=== PATIENT | male | born 1955 | race Caucasian/White ===

== ENCOUNTER 2023-04-03 15:22 | Outpatient (REF) | payer MEDICARE, SELFPAY ==
--- NOTE | ~2023-04-03 | CT_ITS ---
EXAMINATION: CT CHEST SCREENING CLINICAL INFORMATION: Current smoker. 51 pack year history. COMPARISON: None available. TECHNIQUE: Multidetector volumetric CT imaging of the chest is performed without contrast using low dose technique. Additional 2D coronal and sagittal reformatted images and axial 3D maximum intensity projection (MIP) images are generated on the CT workstation. This CT examination was performed using dose optimization techniques as appropriate, variously including the following: *Automated exposure control *Adjustment of mA and/or kV according to patient size (this includes techniques or standardized protocols for targeted exams where dose is matched to indication/reason for exam; i.e. extremities or head) *Use of iterative reconstruction technique DLP: 67 mGy-cm FINDINGS: LUNGS: Emphysema. The lungs are clear with no evidence of inflammation or nodules. MEDIASTINUM: The mediastinum is normal. CORONARY ARTERY CALCIFICATION: Mild PLEURA: There is no pleural effusion. No pleural mass or thickening. AXILLA: No lymphadenopathy. UPPER ABDOMEN: The gallbladder has been removed. OSSEOUS STRUCTURES: Degenerative changes of the spine and mild scoliosis.. CT/CT lung screening IMPRESSION: Emphysema. ASSESSMENT: Lung-RADS category 1: Negative RECOMMENDATION: Annual low-dose chest CT follow-up recommended
== END 2023-04-03 15:23 | disposition home or self-care (01) ==
LOC: HO.CT 15:22
PROVIDERS: PCP Internal Medicine; Visit Provider Physician Assistant Medical
DX: Z12.2 Encounter for screening for malignant neoplasm of respiratory organs (principal); F17.210 Nicotine dependence, cigarettes, uncomplicated
CPT/HCPCS: 71271; G0296

== ENCOUNTER 2023-07-30 10:35 | Outpatient (AMB) | payer MEDICARE, SELFPAY ==
[2023-07-30 10:40] VITALS: BP 120/70; PULSE 73; O2SAT 98; BMI 26.0
--- NOTE | 2023-07-30 10:40 | MHC.PC.OV ---
Vital Signs 07/30/23 10:40 Height 6 ft Weight 192 lb BMI 26.0 BP 120/70 Blood Pressure Location Lt brachial Position Sitting Pulse 73 Pulse Source Pulse Oximeter Pulse Oximetry (%) 98 Oxygen Delivery Method Room Air Intake Visit Reasons: [facility]-07/16-r elbow infection Applications Administrator: Not Required per policy Accompanied by: Self / Same As Patient Allergies No Known Allergies Allergy (Verified 07/30/23 10:40) Medication List - Last Reconciled 07/30/23 by Bob Ferrell MD clonazepam 0.5 mg PO DAILY doxycycline hyclate 100 mg PO BID hydroxyzine HCl 25 mg PO Q8H PRN naproxen (Naprosyn) 500 mg PO BID PRN sildenafil 100 mg PO DAILY PRN temazepam 15 mg PO BEDTIME PRN triazolam 0.25 mg PO BEDTIME PRN Tobacco use date assessed: 12/08/22 Fall risk assessment: No Falls in past year Last assessed Fall Risk: 07/30/23 Dental Screening Dental Screen Date: 07/30/23 Did you have a dental visit in the last 12 months?: No Did you have a dental problem in the last 6 months where you did not have access to dental care?: No Was dental information given to patient?: Patient has dentist HPI [facility]-07[facility] elbow infection HPI Details cellulitis right elbow whic has resolved; feels well PFS Medical History Nicotine dependence, cigarettes, uncomplicated Tubular adenoma of colon (~2011) Anxiety Surgical History History of umbilical hernia repair History of cholecystectomy History of surgery on lower extremity History of colonoscopy History of tonsillectomy Family History Father Cardiac muscle disease Mother Lung cancer Son Colon cancer Family/Other Mental health disorder Substance use disorder Social History Housing: House Alcohol intake: current Alcohol intake frequency: a few times a month Patient Tobacco Use Status: Current everyday Tobacco user Tobacco use type: Cigarette Cigarettes Per Day: 10 Years Smoked: (current smoker, 1ppd x 53yrs, now 1/2ppd - 50pyh) e-Cigarette/Vaping Use: Never Used Second Hand Smoke Exposure: Yes service: No Current occupational status: retired Cognitive needs: No Hearing needs: No Vision needs: Yes Questionnaire PHQ-9 Over the last 2 weeks, how often have you been bothered by any of the following problems? 1. Little interest or pleasure in doing things: not at all 2. Feeling down, depressed, or hopeless: not at all 3. Trouble falling or staying asleep, or sleeping too much: not at all 4. Feeling tired or having little energy: not at all 5. Poor appetite or overeating: not at all 6. Feeling bad about yourself - or that you are a failure or have let yourself or your family down: not at all 7. Trouble concentrating on things, such as reading the newspaper or watching television: not at all 8. Moving or speaking so slowly that other people could have noticed. Or the opposite - being so fidgety or restless that you have been moving around a lot more than usual: not at all 9. Thoughts that you would be better off or of hurting yourself in some way: not at all Total score: 0 Depression Screening Interpretation: Negative Depression Screening Done: Yes 40033 - PHQ-9 Billing: Yes Source: Developed by Drs. Dwaine Sorensen, Sotero Flores and colleagues, with an educational nikolas from [employer]. Thrive Questionnaire Date Thrive assessed: 12/08/22 AUDIT C Alcohol Use Questionnaire (AUDIT-C) 1. How often do you have a drink containing alcohol?: 2-3 times a week 2. How many drinks containing alcohol do you have on a typical day when you are drinking?: 1 or 2 3. How often do you have six or more drinks on one occasion?: Never Total Score: 3 Score Reviewed/Action Taken: Yes JIMMY-7 AMB Questionnaire JIMMY-7 Date JIMMY - 7 assessed: 12/08/22 Source: Developed by Drs. Dwaine Sorensen, Sotero Flores and colleagues, with an educational nikolas from [employer]. Review of Systems Const Denies chills, Denies headache(s) and Denies weight loss ENT Denies headache(s) Card Denies chest pain, Denies syncope, Denies irregular heart rhythm and Denies dyspnea Resp Denies chest congestion, Denies cough and Denies dyspnea GI Denies abdominal pain, Denies change in stool character, Denies nausea and Denies vomiting Musc Denies deformity and Denies joint swelling Neuro Denies syncope and Denies headache(s) Physical exam (Primary Care) Vital Signs: Last Vital Signs Pulse 73 07/30/23 10:40 BP 120/70 07/30/23 10:40 Pulse Ox 98 07/30/23 10:40 Oxygen Delivery Method Room Air 07/30/23 10:40 BMI result Body Mass Index 26.0 Tobacco/Smoking Status: Tobacco use Status Tobacco use date assessed 12/08/22 07/30/23 10:41 Patient Tobacco Use Status Current everyday Tobacco 07/30/23 10:41 Tobacco use type Cigarette 07/30/23 10:41 e-Cigarette/Vaping Use Never Used 07/30/23 10:41 PHQ-9: PHQ-9 Score PHQ-9: Total score 0 07/30/23 11:01 Depression Screening Interpretation: Negative Thrive Assessment: Date of Thrive Assessment Date Thrive assessed 12/08/22 07/30/23 10:41 Const General: cooperative, comfortable, no acute distress and alert Neck Neck: Yes no lymphadenopathy Thyroid: Thyroid normal Resp Effort & Inspection: normal respiratory effort Auscultation: clear to auscultation bilaterally Percussion: percussion normal Cardio Jugular venous distension: no JVD Palpation: normal PMI Rate: regular rate Rhythm: regular rhythm Heart sounds: S1 normal heart sound present and S2 normal heart sound present GI Inspection: Yes normal to inspection Palpation (GI): No hepatosplenomegaly present Skin General skin exam: no rashes or lesions noted Extrem General: Yes no clubbing, cyanosis or edema Office Procedures Flu Questionnaire Does the patient have a severe egg allergy?: No Does the patient have severe life threatening allergies?: No Does the patient have a fever or illness today?: No Has the patient ever had Guillain-[place] Syndrome?: No Has the patient ever had any past reaction to a flu shot?: No Immunizations flu vacc [id number] 6mos up(PF) 60 mcg(15 mcgx4)/0.5 mL IM syringe Performing Provider: Bob Ferrell MD Performing Location: [facility] Administered by: JUAN Mckinney on 07/30/23 11:02 Dose Route Admin Location Dispensed Lot Number Expiration Date [employer] 0.5 mL IM Left Deltoid 0.5 mL [id number] 04/24/24 93299-736-64 [employer] VIS Given Date VIS Provided VIS Publication Date 07/30/23 Single Vaccine 21 Eligibility Eligibility Date Funding Source Not [facility] Eligible 07/30/23 Private Assessment and Plan Assessment & Plan (1) Cellulitis of arm, right: Code(s): L03.113 - Cellulitis of right upper limb Plan: resolved Orders: Orders Influenza [id number] Immunization Today Z23 - Encounter for immunization Referrals Gastroenterology Referral Z12.11 - Encounter for screening for malignant neoplasm of colon Medications: Refilled triazolam 0.25 mg PO BEDTIME PRN 90 tabs 5RF sleep Coding Level of Care Code Est Pt Level 3 (51296) Diagnoses Cellulitis of arm, right L03.113
== END 2023-07-30 11:01 | disposition home or self-care (01) ==
PROVIDERS: PCP Internal Medicine; Visit Provider Internal Medicine
DX: Z23 Encounter for immunization (principal); L03.113 Cellulitis of right upper limb
CPT/HCPCS: 90471; 90686; 99213

== ENCOUNTER 2024-03-04 08:14 | Day surgery (SDC) | payer MEDICARE, SELFPAY ==
[2024-03-03 07:30] VITALS: BMI 27.2
[2024-03-04 09:22] VITALS: BMI 26.5
[2024-03-04 09:35] VITALS: BP 143/85; PULSE 68; RESP 16; TEMP 36.7; O2SAT 98
--- NOTE | 2024-03-04 09:40 | P.CONAN_ITS ---
Documented by User: Reema Orourke NP 03/03/24 10:38 HPI - Anesthesia Eval Consult details Narrative: 68yo M for Colonoscopy PMFSH Active Problems Active Problems: All Active Problems Insomnia (Acute) Dysphagia (Acute) Neck pain (Acute) Back pain (Acute) Nicotine dependence, cigarettes, uncomplicated (Acute) Tubular adenoma of colon (Acute ~2011) Anxiety (Acute) Past Medical History Medical History (Updated 03/03/24 @ 07:28 by Loly Julian RN) Emphysema of lung Nicotine dependence, cigarettes, uncomplicated Tubular adenoma of colon (~2011) Anxiety Family History Family History Father Cardiac muscle disease Mother Lung cancer Son Colon cancer Family/Other Mental health disorder Substance use disorder Surgical History Surgical History History of umbilical hernia repair History of cholecystectomy History of surgery on lower extremity History of colonoscopy History of tonsillectomy Social History Social History Housing: House Alcohol intake: current Alcohol intake frequency: a few times a month Patient Tobacco Use Status: Current everyday Tobacco user Tobacco use type: Cigarette Cigarettes Per Day: 10 Years Smoked: (current smoker, 1ppd x 53yrs, now 1/2ppd - 50pyh) e-Cigarette/Vaping Use: Never Used Second Hand Smoke Exposure: Yes Use of substances other than those prescribed or required for medical reasons: No Are you DNR?: No Advance Directives: No Advance Directives Information Provided: Yes service: No Current occupational status: retired Cognitive needs: No Hearing needs: No Vision needs: Yes Meds Allergies Allergy/AdvReac Type Severity Reaction Status Date / Time No Known Allergies Allergy Verified 03/04/24 09:18 Home Medications ?Medication ?Instructions ?Recorded ?Confirmed ?Last Taken ?Type aspirin 81 mg tablet,delayed 81 mg PO DAILY 03/03/24 03/04/24 Unknown History release multivitamin 1 tab PO DAILY 03/03/24 03/04/24 Unknown History triazolam 0.25 mg tablet 0.25 mg PO BEDTIME PRN insomnia 03/03/24 03/04/24 Unknown History Exam Height,Weight and Vital Signs: Height 5 ft 11 in Weight 88.451 kg Assessment and Plan Assessment Anesthesia Assessment: Chart Reviewed Documented by User: Cheri Garcia, 03/04/24 09:44 PMFSH Past Medical History Medical History (Updated 03/03/24 @ 07:28 by Loly Julian RN) Emphysema of lung Nicotine dependence, cigarettes, uncomplicated Tubular adenoma of colon (~2011) Anxiety Family History Family History Father Cardiac muscle disease Mother Lung cancer Son Colon cancer Family/Other Mental health disorder Substance use disorder Family history of problems with anesthesia: No Surgical History Surgical History History of umbilical hernia repair History of cholecystectomy History of surgery on lower extremity History of colonoscopy History of tonsillectomy History of Problems with Anesthesia: No Social History Social History Housing: House Alcohol intake: current Alcohol intake frequency: a few times a month Patient Tobacco Use Status: Current everyday Tobacco user Tobacco use type: Cigarette Cigarettes Per Day: 10 Years Smoked: (current smoker, 1ppd x 53yrs, now 1/2ppd - 50pyh) e-Cigarette/Vaping Use: Never Used Second Hand Smoke Exposure: Yes Use of substances other than those prescribed or required for medical reasons: No Are you DNR?: No Advance Directives: No Advance Directives Information Provided: Yes service: No Current occupational status: retired Cognitive needs: No Hearing needs: No Vision needs: Yes Meds Allergies Allergy/AdvReac Type Severity Reaction Status Date / Time No Known Allergies Allergy Verified 03/04/24 09:18 Home Medications ?Medication ?Instructions ?Recorded ?Confirmed ?Last Taken ?Type aspirin 81 mg tablet,delayed 81 mg PO DAILY 03/03/24 03/04/24 Unknown History release multivitamin 1 tab PO DAILY 03/03/24 03/04/24 Unknown History triazolam 0.25 mg tablet 0.25 mg PO BEDTIME PRN insomnia 03/03/24 03/04/24 Unknown History Exam Exam Date and Time: March 04, 2024 0940 Height,Weight and Vital Signs: Height 5 ft 11 in Weight 88.451 kg Height 5 ft 11 in Weight 86.183 kg Vital Signs Temperature 98.0 F 03/04/24 09:35 Pulse Rate 68 03/04/24 09:35 Respiratory Rate 16 03/04/24 09:35 Blood Pressure 143/85 H 03/04/24 09:35 Pulse Oximetry 98 03/04/24 09:35 Oxygen Delivery Method Room Air 03/04/24 09:35 Temperature 98.0 F 03/04/24 09:35 Pulse Rate 68 03/04/24 09:35 Respiratory Rate 16 03/04/24 09:35 Blood Pressure 143/85 H 03/04/24 09:35 Pulse Oximetry 98 03/04/24 09:35 Oxygen Delivery Method Room Air 03/04/24 09:35 Airway Mallampati Class: II TM Dist: >3cm Neck ROM: Full Partial: Upper Loose/Missing/Broken Teeth: Yes (poor dentition) Heart: S1S2 Lungs: CTAB Assessment and Plan Assessment Anesthesia Assessment: Anesthesia Plan Discussed and Chart Reviewed Final Anesthetic Review Family History of Problems with Anesthesia: No History of Problems with Anesthesia: No NPO: Yes ASA Class: II Final Preanesthetic Review: No Changes in Pt Med Stat, Meds/Allgs Chart Reviewed , Consent Obtained/Reviewed and Anes Risks/Benef Reviewed Patient Risk: Low Procedure Risk: Low Anesthetic Plan Anesthetic Plan: MAC: and Agree w/ Assess. and Plan Disposition: Standard PACU
[2024-03-04] MEDS: Lactated Ringers 1,000 ML 100 ML IVCONT (09:49)
[2024-03-04 10:54] VITALS: BP 117/71; PULSE 70; RESP 16; TEMP 36.4; O2SAT 96
--- NOTE | 2024-03-04 10:55 | PM.OP ---
Brief Operative Note Date of Service: 03/04/24 Pre-op diagnosis: Screening Post-op diagnosis: other (Polyp) Procedure: Colonoscopy to the cecum and TI with bx/removal of polyp Surgeon: Dwaine Delgado MD Anesthesia: MAC Was an [employer] Operator used for this Procedure?: No Estimated blood loss (mL): 2.0 Pathology: other (A. Transverse colon polyp) Condition: stable Disposition: PACU
[2024-03-04 11:09] VITALS: BP 143/83; PULSE 79; RESP 18; TEMP 36.4; O2SAT 98
--- NOTE | 2024-03-04 11:20 | OP_ITS ---
DATE OF SERVICE: 03/04/2024 SURGEON: Dwaine Delgado MD INDICATIONS: The patient presents for evaluation of colorectal cancer screening and personal history of tubular adenoma of the colon. Full consent was obtained from him for this, including risks of bleeding and perforation. PREOPERATIVE DIAGNOSIS: Colorectal cancer screening and personal history of tubular adenoma of the colon. POSTOPERATIVE DIAGNOSIS: PROCEDURE PERFORMED: Colonoscopy to cecum and terminal ileum with biopsy and removal of polyp. ESTIMATED BLOOD LOSS: COMPLICATIONS: ANESTHESIA: Monitored anesthesia care. ASSISTANTS: SPECIMENS: POSTOPERATIVE DIAGNOSES: Colorectal cancer screening and personal history of tubular adenoma of the colon, small colon polyp, diverticulosis, and internal hemorrhoids. DESCRIPTION OF PROCEDURE: The patient was placed in the left lateral decubitus position. The digital rectal exam revealed no abnormalities. The Olympus video pediatric colonoscope was entered into the rectum and advanced easily to the cecum. Once in the cecum, I did identify normal-appearing cecal pouch with appendiceal orifice and a normal-appearing ileocecal valve. The terminal ileum was cannulated and appeared normal. The scope was withdrawn back in the colon. The entire cecum and ileocecal valve appeared normal. Scope was slowly withdrawn assessing all mucosal surfaces carefully. Preparation was excellent. In the transverse colon was a flat, approximately 5 mm polyp, which was biopsied and completely removed with cold biopsy forceps. I did not visualize any other polyps, colitis, or angiodysplasia. There was a mild amount of sigmoid diverticulosis. In the rectum, scope was retroflexed, visualizing small internal hemorrhoids, but no other pathology. The rectal mucosa appeared normal. Scope was straightened and withdrawn from the patient. He tolerated the procedure well and was returned to the recovery area in stable condition. IMPRESSION: 1. Small colon polyp. 2. Diverticulosis. 3. Internal hemorrhoids. PLAN: The results of biopsies will be checked. I would recommend a repeat colonoscopy in 5 years for further surveillance. Dwaine Delgado MD RMW/MODL / [id number]
== END 2024-03-04 11:30 | disposition home or self-care (01) ==
PROVIDERS: PCP Internal Medicine; Visit Provider Internal Medicine
PROC: 0DJD8ZZ Inspection of Lower Intestinal Tract, Via Natural or Artificial Opening Endoscopic (ICD-10-PCS; CPT 45378; principal; 2024-03-04 09:30)
DX: Z12.11 Encounter for screening for malignant neoplasm of colon (principal); D12.3 Benign neoplasm of transverse colon; K57.30 Diverticulosis of large intestine without perforation or abscess without bleeding; K64.8 Other hemorrhoids; Z86.010 Personal history of colon polyps; Z80.0 Family history of malignant neoplasm of digestive organs
CPT/HCPCS: 45380; 88305; J2704

== ENCOUNTER 2024-05-13 11:31 | Outpatient (AMB) | payer MEDICARE, SELFPAY ==
--- NOTE | 2024-05-13 11:33 | MHC.PC.OV ---
Vital Signs 05/13/24 11:43 Height 5 ft 11 in Weight 197 lb BMI 27.5 BP 158/70 H Blood Pressure Location Lt brachial Position Sitting Pulse 75 Pulse Source Pulse Oximeter Pulse Oximetry (%) 97 Oxygen Delivery Method Room Air Intake Visit Reasons: Colonoscopy f/u Rubber Cutter Required: No Accompanied by: Self / Same As Patient Allergies No Known Allergies Allergy (Verified 05/13/24 11:44) Medication List - Last Reconciled 05/16/24 by Bob Ferrell MD aspirin 81 mg PO DAILY clonazepam 0.5 mg PO DAILY multivitamin 1 tab PO DAILY triazolam 0.25 mg PO BEDTIME PRN Tobacco use date assessed: 12/08/22 Dental Screening Dental Screen Date: 07/30/23 HPI Colonoscopy f/u HPI Details chronic anxiety on rx; compliant and meds helping [facility] Medical History (Updated 03/03/24 @ 07:28 by Loly Julian RN) Emphysema of lung Nicotine dependence, cigarettes, uncomplicated Tubular adenoma of colon (~2011) Anxiety Surgical History History of umbilical hernia repair History of cholecystectomy History of surgery on lower extremity History of colonoscopy History of tonsillectomy Family History Father Cardiac muscle disease Mother Lung cancer Son Colon cancer Family/Other Mental health disorder Substance use disorder Social History Housing: House Alcohol intake: current Alcohol intake frequency: a few times a month Patient Tobacco Use Status: Current everyday Tobacco user Tobacco use type: Cigarette Cigarettes Per Day: 10 Years Smoked: (current smoker, 1ppd x 53yrs, now 1/2ppd - 50pyh) e-Cigarette/Vaping Use: Never Used Second Hand Smoke Exposure: Yes service: No Current occupational status: retired Cognitive needs: No Hearing needs: No Vision needs: Yes Questionnaire PHQ-9 Over the last 2 weeks, how often have you been bothered by any of the following problems? 1. Little interest or pleasure in doing things: not at all 2. Feeling down, depressed, or hopeless: not at all 3. Trouble falling or staying asleep, or sleeping too much: not at all 4. Feeling tired or having little energy: not at all 5. Poor appetite or overeating: not at all 6. Feeling bad about yourself - or that you are a failure or have let yourself or your family down: not at all 7. Trouble concentrating on things, such as reading the newspaper or watching television: not at all 8. Moving or speaking so slowly that other people could have noticed. Or the opposite - being so fidgety or restless that you have been moving around a lot more than usual: not at all 9. Thoughts that you would be better off or of hurting yourself in some way: not at all Total score: 0 Depression Screening Interpretation: Negative Depression Screening Done: Yes 39168 - PHQ-9 Billing: Yes Source: Developed by Drs. Dwaine Sorensen, Janene Guzman, Sotero Ambrose and colleagues, with an educational nikolas from [employer]. Thrive Questionnaire Date Thrive assessed: 05/13/24 I am a: Patient What is your living situation today?: I have a steady place to live Within the past 12 months, did the food you bought not last and you didn't have the money to get more?: Never true Within the past 12 months, did you worry whether your food would run out before you got money to buy more?: Never true Do you have trouble paying for medicines?: No Do you have trouble getting transportation to medical appointments?: No Do you have trouble paying your heating and electricity bill?: No Do you have trouble taking care of your child, family member or friend?: No Do you have trouble with day-to-day activities such as bathing, preparing meals, shopping, managing finances, etc.?: No Are you currently unemployed and looking for a job?: No Are you interested in more education?: No Please select the resources that you would like help with: None Currently or been in a relationship where the following occur: No concerns reported THRIVE Score: 0 AUDIT C Alcohol Use Questionnaire (AUDIT-C) 1. How often do you have a drink containing alcohol?: 2-3 times a week 2. How many drinks containing alcohol do you have on a typical day when you are drinking?: 1 or 2 3. How often do you have six or more drinks on one occasion?: Never Total Score: 3 Score Reviewed/Action Taken: Yes JIMMY-7 AMB Questionnaire JIMMY-7 Date JIMMY - 7 assessed: 05/13/24 Feeling nervous, anxious, or on edge: 0 = Not at all Not being able to stop or control worryin = Not at all Worrying too much about different things: 0 = Not at all Trouble relaxin = Not at all Being so restless that it is hard to sit still: 0 = Not at all Becoming easily annoyed or irritable: 0 = Not at all Feeling afraid as if something awful might happen: 0 = Not at all Total JIMMY-7 score (0-4 normal; 5-9 mild; 10-14 moderate; 15-21 severe): 0 Source: Developed by Drs. Dwaine Sorensen, Janene Guzman, Sotero Ambrose and colleagues, with an educational nikolas from [employer]. JIMMY-7 Assessment Billing JIMMY-7 Assessment Tool: JIMMY-7 Assessment 85581 Review of Systems Const Denies chills, Denies headache(s) and Denies weight loss ENT Denies headache(s) Card Denies chest pain, Denies syncope, Denies irregular heart rhythm and Denies dyspnea Resp Denies chest congestion, Denies cough and Denies dyspnea GI Denies abdominal pain, Denies change in stool character, Denies nausea and Denies vomiting Musc Denies deformity and Denies joint swelling Neuro Denies syncope and Denies headache(s) Physical exam (Primary Care) Vital Signs: Last Vital Signs Pulse 75 05/13/24 11:43 BP 158/70 H 05/13/24 11:43 Pulse Ox 97 05/13/24 11:43 Oxygen Delivery Method Room Air 05/13/24 11:43 BMI result Body Mass Index 27.5 Tobacco/Smoking Status: Tobacco use Status Tobacco use date assessed 12/08/22 05/13/24 11:33 Patient Tobacco Use Status Current everyday Tobacco 05/13/24 11:33 Tobacco use type Cigarette 05/13/24 11:33 e-Cigarette/Vaping Use Never Used 05/13/24 11:33 PHQ-9: PHQ-9 Score PHQ-9: Total score 0 05/13/24 11:45 Depression Screening Interpretation: Negative Thrive Assessment: Date of Thrive Assessment Date Thrive assessed 05/13/24 05/13/24 11:41 Currently or been in a relationship where the following occur: No concerns reported Const General: cooperative, comfortable, no acute distress and alert Neck Neck: Yes no lymphadenopathy Thyroid: Thyroid normal Resp Effort & Inspection: normal respiratory effort Auscultation: clear to auscultation bilaterally Percussion: percussion normal Cardio Jugular venous distension: no JVD Palpation: normal PMI Rate: regular rate Rhythm: regular rhythm Heart sounds: S1 normal heart sound present and S2 normal heart sound present GI Inspection: Yes normal to inspection Palpation (GI): No hepatosplenomegaly present Skin General skin exam: no rashes or lesions noted Extrem General: Yes no clubbing, cyanosis or edema Assessment and Plan Assessment & Plan (1) Anxiety: Code(s): F41.9 - Anxiety disorder, unspecified Plan: stable; same rx Orders: Orders XR knee RT 2V 05/13/24 M25.569 - Pain in unspecified knee Lyme IgG/IgM w/reflex to WB 05/13/24 W57.XXXA - Bitten or stung by nonvenomous insect and other nonvenomous arthropods, initial encounter Medications: New triazolam 0.25 mg PO BEDTIME PRN 60 tabs 3RF insomnia Coding Level of Care Code Est Pt Level 3 (98038) Diagnoses Anxiety F41.9 Additional Codes JIMMY-7 Assessment Billing - JIMMY-7 Assessment Tool: JIMMY-7 Assessment 69935 ([id number])
[2024-05-13 11:43] VITALS: BP 158/70; PULSE 75; O2SAT 97; BMI 27.5
== END 2024-05-13 11:53 | disposition home or self-care (01) ==
PROVIDERS: PCP Internal Medicine; Visit Provider Internal Medicine
DX: F41.9 Anxiety disorder, unspecified (principal)
CPT/HCPCS: 99213

== ENCOUNTER 2024-05-13 12:02 | Outpatient (REF) | payer MEDICARE, SELFPAY ==
--- NOTE | ~2024-05-13 | XR_ITS ---
EXAMINATION: XR KNEE, RIGHT CLINICAL INFORMATION: Pain after tick bite 2 weeks ago. COMPARISON: None available. TECHNIQUE: Two views of the right knee. FINDINGS: No fracture or dislocation. No suprapatellar joint effusion. Joint spaces are relatively well-maintained. Tiny tricompartmental marginal osteophytes. Minimal vascular calcifications. Minimal soft tissue swelling of the anterior knee. XR/XR knee RT 2V IMPRESSION: Minimal soft tissue swelling of the anterior knee without fracture, dislocation or joint effusion.
[2024-05-16 19:08] LABS: Lyme Abs Screen <0.90 index
== END 2024-05-13 12:03 | disposition home or self-care (01) ==
LOC: HO.XRAY 12:02
PROVIDERS: PCP Internal Medicine; Visit Provider Internal Medicine
DX: M25.561 Pain in right knee (principal); W57.XXXA Bitten or stung by nonvenomous insect and other nonvenomous arthropods, initial encounter; X58.XXXA Exposure to other specified factors, initial encounter; Y93.9 Activity, unspecified; Y92.9 Unspecified place or not applicable; Y99.9 Unspecified external cause status; Z13.0 Encounter for screening for diseases of the blood and blood-forming organs and certain disorders involving the immune mechanism; Z13.29 Encounter for screening for other suspected endocrine disorder; Z13.220 Encounter for screening for lipoid disorders
CPT/HCPCS: 36415; 73560; 86617; 86618

== ENCOUNTER 2024-07-21 08:45 | Outpatient (REF) | payer MEDICARE, SELFPAY ==
--- NOTE | ~2024-07-21 | CT_ITS ---
EXAMINATION: CT CHEST LOW-DOSE SCREENING WITHOUT CONTRAST CLINICAL INFORMATION: Asymptomatic patient meeting criteria for lung screening. Nicotine dependence, cigarettes. PATIENT PACK-YEAR HISTORY: 1 ppd 53 years. Current Smoker: Yes. If former smoker, years since quitting: Not applicable. COMPARISON: None available. TECHNIQUE: Multidetector volumetric non-contrast CT imaging of the chest was obtained on a Siemens Somatom Definition scanner using low dose screening CT technique. Axial thin section 0.625 mm reformations in soft tissue and lung windows were obtained. Sagittal and coronal reformations were obtained. Axial MIP images were also created and reviewed. RECONSTRUCTED WIDTH: 1.25 mm x 1.[address] examination was performed using dose optimization techniques as appropriate, variously including the following: *Automated exposure control. *Adjustment of mA and/or kV according to patient size (this includes techniques or standardized protocols for targeted exams where dose is matched to indication/reason for exam; i.e. extremities or head). *Use of iterative reconstruction technique. TOTAL EXAM DLP: 60 mGy-cm. CTDIvol: 1.72 mGy. FINDINGS: PULMONARY NODULES: No suspicious pulmonary nodules. LUNGS: Lungs bilaterally symmetrically expanded. There is mild emphysema and bronchial thickening. No effusion or pneumothorax. Central airways patent. LYMPHATIC STRUCTURES: No mediastinal, hilar or axillary adenopathy or free fluid collection. THYROID GLAND: Unremarkable to the extent seen. CARDIOVASCULAR STRUCTURES: Aortic and heart size normal. [id number]-[id number] coronary artery calcifications. No pericardial effusion. UPPER ABDOMEN: There is hepatic steatosis. No other abnormality is seen. OSSEOUS STRUCTURES: No suspicious focal findings. SPINAL COMPRESSION: Absent. CT/CT lung screening IMPRESSION: No findings suspicious for malignancy/pulmonary nodule(s)/other. LUNG-RADS CATEGORY ASSESSMENT: 1: Negative. INCIDENTAL FINDINGS (S CATEGORY): Finding: No incidental findings. Significance Category: Normal or normal variant. RECOMMENDATION: Low dose lung CT. overall in 1 year. Electronically signed by: Georges Guido MD 09/10/2024 09:17 AM EST
== END 2024-07-21 08:46 | disposition home or self-care (01) ==
LOC: HO.CT 08:45
PROVIDERS: PCP Internal Medicine; Visit Provider Physician Assistant Medical
DX: Z12.2 Encounter for screening for malignant neoplasm of respiratory organs (principal); F17.210 Nicotine dependence, cigarettes, uncomplicated
CPT/HCPCS: 71271

== ENCOUNTER 2024-08-25 13:22 | Outpatient (REF) | payer MEDICARE, SELFPAY ==
--- NOTE | ~2024-08-25 | XR_ITS ---
EXAMINATION: XR HIP, RIGHT CLINICAL INFORMATION: Right hip pain COMPARISON: None available. TECHNIQUE: Two views of the right hip. FINDINGS: No evidence for acute fracture or dislocation. Small spurring of the right femoral head and the acetabular margin. No intertrochanteric disruption. There is mild narrowing of the right hip joint space. The acetabular and pubic margins appear to be intact. Visualized sacrum grossly intact. XR/XR hip RT min 2V IMPRESSION: No acute process. Degenerative changes as described. Electronically signed by: Parminder Arevalo MD 08/25/2024 04:54 PM EDT
--- NOTE | ~2024-08-25 | XR_ITS ---
EXAMINATION: XR ANKLE, RIGHT CLINICAL INFORMATION: Pain COMPARISON: None available. TECHNIQUE: AP, lateral, and mortise views of the right ankle. FINDINGS: Small density adjacent to the medial malleolus could reflect sequela of avulsion fracture, of indeterminate age. No acute fracture is otherwise seen. Talocrural articulation is maintained. Slight asymmetry of the ankle mortise, suspected to be due to positioning/technique. The anterior calcaneal process, visualized fifth metatarsal base appears intact.. Small distal Achilles tendon chronic calcification. XR/XR ankle RT 2V IMPRESSION: Small calcification/ossification adjacent medial malleolus, could reflect sequela of avulsion injury, from indeterminate age. No acute fracture is otherwise seen. Electronically signed by: Alan Smith MD 08/25/2024 05:38 PM EDT
== END 2024-08-25 13:23 | disposition home or self-care (01) ==
LOC: HO.XRAY 13:22
PROVIDERS: PCP Internal Medicine; Visit Provider Internal Medicine
DX: M25.551 Pain in right hip (principal); M25.571 Pain in right ankle and joints of right foot; M25.561 Pain in right knee
CPT/HCPCS: 73502; 73600; 99212

== ENCOUNTER 2024-08-25 13:22 | Outpatient (AMB) | payer MEDICARE, SELFPAY ==
[2024-08-25 13:24] VITALS: BP 156/84; PULSE 89; O2SAT 94; BMI 26.9
--- NOTE | 2024-08-25 13:24 | A.OFFPC_ITS ---
Vital Signs 08/25/24 13:24 Height 5 ft 11 in Weight 193 lb BMI 26.9 BP 156/84 H Blood Pressure Location Lt brachial Position Sitting Pulse 89 Pulse Source Pulse Oximeter Pulse Oximetry (%) 94 Oxygen Delivery Method Room Air Intake Visit Reasons: LT knee pain Polls Or Surveys Interviewer Required: No Accompanied by: Self / Same As Patient Allergies No Known Allergies Allergy (Verified 08/25/24 13:24) Medication List - Last Reconciled 08/25/24 by Bob Ferrell MD aspirin 81 mg PO DAILY clonazepam 0.5 mg PO DAILY multivitamin 1 tab PO DAILY triazolam 0.25 mg PO BEDTIME PRN Tobacco use date assessed: 08/25/24 Fall risk assessment: No Falls in past year Last assessed Fall Risk: 08/25/24 Dental Screening Dental Screen Date: 08/25/24 Did you have a dental visit in the last 12 months?: No Did you have a dental problem in the last 6 months where you did not have access to dental care?: No Was dental information given to patient?: Patient declined HPI LT knee pain HPI Details right knee pain for several months; XR unremarkable [facility] Medical History (Updated 03/03/24 @ 07:28 by Loly Julian RN) Emphysema of lung Nicotine dependence, cigarettes, uncomplicated Tubular adenoma of colon (~2011) Anxiety Surgical History History of umbilical hernia repair History of cholecystectomy History of surgery on lower extremity History of colonoscopy History of tonsillectomy Family History Father Cardiac muscle disease Mother Lung cancer Son Colon cancer Family/Other Mental health disorder Substance use disorder Social History Housing: House Alcohol intake: current Alcohol intake frequency: a few times a month Patient Tobacco Use Status: Current everyday Tobacco user Tobacco use type: Cigarette Cigarettes Per Day: 10 Years Smoked: (current smoker, 1ppd x 53yrs, now 1/2ppd - 50pyh) e-Cigarette/Vaping Use: Never Used Second Hand Smoke Exposure: Yes service: No Current occupational status: retired Cognitive needs: No Hearing needs: No Vision needs: Yes Questionnaire Thrive Questionnaire Date Thrive assessed: 05/13/24 JIMMY-7 AMB Questionnaire JIMMY-7 Date JIMMY - 7 assessed: 05/13/24 Source: Developed by Drs. Dwaine Sorensen, Janene Guzman, Sotero Ambrose and colleagues, with an educational nikolas from [employer]. Review of Systems Const Denies chills, Denies headache(s) and Denies weight loss ENT Denies headache(s) Card Denies chest pain, Denies syncope, Denies irregular heart rhythm and Denies dyspnea Resp Denies chest congestion, Denies cough and Denies dyspnea GI Denies abdominal pain, Denies change in stool character, Denies nausea and Denies vomiting Musc Denies deformity and Denies joint swelling Neuro Denies syncope and Denies headache(s) Physical exam (Primary Care) Vital Signs: Last Vital Signs Pulse 89 08/25/24 13:24 BP 156/84 H 08/25/24 13:24 Pulse Ox 94 08/25/24 13:24 Oxygen Delivery Method Room Air 08/25/24 13:24 BMI result Body Mass Index 26.9 Tobacco/Smoking Status: Tobacco use Status Tobacco use date assessed 08/25/24 08/25/24 13:28 Patient Tobacco Use Status Current everyday Tobacco 08/25/24 13:28 Tobacco use type Cigarette 08/25/24 13:28 e-Cigarette/Vaping Use Never Used 08/25/24 13:28 Thrive Assessment: Date of Thrive Assessment Date Thrive assessed 05/13/24 08/25/24 13:28 Const General: cooperative, comfortable, no acute distress and alert Neck Neck: Yes no lymphadenopathy Thyroid: Thyroid normal Resp Effort & Inspection: normal respiratory effort Auscultation: clear to auscultation bilaterally Percussion: percussion normal Cardio Jugular venous distension: no JVD Palpation: normal PMI Rate: regular rate Rhythm: regular rhythm Heart sounds: S1 normal heart sound present and S2 normal heart sound present GI Inspection: Yes normal to inspection Palpation (GI): No hepatosplenomegaly present Skin General skin exam: no rashes or lesions noted Extrem General: Yes no clubbing, cyanosis or edema Coding Level of Care Code Est Pt Level 3 (53880) Diagnoses Knee pain M25.569 Assessment & Plan Assessment & Plan (1) Knee pain: Code(s): M25.569 - Pain in unspecified knee Plan: ortho referral Orders: Orders XR ankle RT 2V Today M25.579 - Pain in unspecified ankle and joints of unspecified foot XR hip RT min 2V Today M25.559 - Pain in unspecified hip Referrals Orthopedics Referral M25.569 - Pain in unspecified knee Medications: New tramadol 50 mg PO Q8H PRN 20 tabs 2RF pain
== END 2024-08-25 13:35 | disposition home or self-care (01) ==
LOC: HO.HMCH 13:22
PROVIDERS: PCP Internal Medicine; Visit Provider Internal Medicine
DX: M25.569 Pain in unspecified knee (principal)

== ENCOUNTER 2024-10-07 08:17 | Outpatient (AMB) | payer MEDICARE, SELFPAY ==
[2024-10-07 08:27] VITALS: BMI 26.9
--- NOTE | 2024-10-07 08:27 | A.OFFVIS_ITS ---
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 States pain started about 3 months ago. Denies injury or injury. Leg and hip pain is triggered with prolong sitting, walking or laying. Difficulty walking due to hip and groin pain and, shooting pain from his lower back down his leg. Leg pain is worse. He tried heating pain, Tramadol with no relief. Hx of spinal stenosis. Allergies acetaminophen [From Tylenol] Adverse Reaction (Intermediate, Verified 10/07/24 08:35) stomach pain Medication List - Last Reconciled 10/07/24 by Elvira Jones MD aspirin 81 mg PO DAILY clonazepam 0.5 mg PO DAILY multivitamin 1 tab PO DAILY tramadol 50 mg PO Q8H PRN triazolam 0.25 mg PO BEDTIME PRN HPI Comments Details: Right groin pain. Weakness with right hip flexion. But also pain below right knee and right ankle. Not much pain on his back. But then he thinks this is sciatica because of how painful the right leg is. Denies numbness. Denies bladder/bowel changes. Had gone to ER at [facility], checked for DVT, negative. No PT yet. Taking tramadol but does not seem to help much. No past lumbar issues or injury. He plays softball. [facility] Medical History (Updated 10/07/24 @ 09:44 by Elvira Jones MD) Emphysema of lung Nicotine dependence, cigarettes, uncomplicated Tubular adenoma of colon (~2011) Anxiety Surgical History History of umbilical hernia repair History of cholecystectomy History of surgery on lower extremity History of colonoscopy History of tonsillectomy Family History Father Cardiac muscle disease Mother Lung cancer Son Colon cancer Family/Other Mental health disorder Substance use disorder Social History (Updated 10/07/24 @ 08:36 by Lashell Albarran [facility] Housing: House Alcohol intake: current Alcohol intake frequency: a few times a month Patient Tobacco Use Status: Current everyday Tobacco user Tobacco use type: Cigarette Cigarettes Per Day: 10 Years Smoked: (current smoker, 1ppd x 53yrs, now 1/2ppd - 50pyh) e-Cigarette/Vaping Use: Never Used Second Hand Smoke Exposure: Yes service: No Current occupational status: retired Current occupation: right hand Cognitive needs: No Hearing needs: No Vision needs: Yes Review of Systems Const All systems reviewed & are unremarkable except as noted in HPI and below Physical Exam Vital Signs: BMI result Body Mass Index 26.9 Constitutional: Patient appears to be in no acute distress, well nourished and well developed. Patient was appropriately conversant and oriented. Good historian. MSK: No specific abnormalities found on inspection of the spine and all extremities. No pain with palpation over the lumbar area. No tenderness over SI or GT. Lumbar ROM was full. Limited right hip flexion and abduction range of motion. No ligamentous laxity or crepitance. No increased effusion. Straight-leg raising test negative. FABERE test could not do fully because of limitation on abduction of right hip. Right knee no effusion, redness or warmth. Right ankle no swelling. No calf tenderness. Strength is 5/5 in all muscle groups tested. No increased tone noted. Neurological: Neurologic examination of the upper and lower extremities was nonfocal with intact sensation, muscle stretch reflexes and without focal motor deficits . Garcia?s negative bilaterally. Babinski was down going bilaterally. Clonus was negative. Gait is non-antalgic without loss of balance. Results Reviewed Results Reviewed: I independently reviewed the results of the following: Decreased joint space in right hip. Ordering Physician: Bob Ferrell MD Date of Service: 08/25/24 Procedure(s): XR hip RT min 2V Accession Number(s): [id number] cc: Bob Ferrell MD~ EXAMINATION: XR HIP, RIGHT CLINICAL INFORMATION: Right hip pain COMPARISON: None available. TECHNIQUE: Two views of the right hip. FINDINGS: No evidence for acute fracture or dislocation. Small spurring of the right femoral head and the acetabular margin. No intertrochanteric disruption. There is mild narrowing of the right hip joint space. The acetabular and pubic margins appear to be intact. Visualized sacrum grossly intact. Ordering Physician: Bob Ferrell MD Date of Service: 05/13/24 Procedure(s): XR knee RT 2V Accession Number(s): [id number] cc: Bob Ferrell MD~ EXAMINATION: XR KNEE, RIGHT CLINICAL INFORMATION: Pain after tick bite 2 weeks ago. COMPARISON: None available. TECHNIQUE: Two views of the right knee. FINDINGS: No fracture or dislocation. No suprapatellar joint effusion. Joint spaces are relatively well-maintained. Tiny tricompartmental marginal osteophytes. Minimal vascular calcifications. Minimal soft tissue swelling of the anterior knee. XR/XR knee RT 2V IMPRESSION: Minimal soft tissue swelling of the anterior knee without fracture, dislocation or joint effusion. Ordering Physician: Bob Ferrell MD Date of Service: 08/25/24 Procedure(s): XR ankle RT 2V Accession Number(s): [id number] cc: Bob Ferrell MD~ EXAMINATION: XR ANKLE, RIGHT CLINICAL INFORMATION: Pain COMPARISON: None available. TECHNIQUE: AP, lateral, and mortise views of the right ankle. FINDINGS: Small density adjacent to the medial malleolus could reflect sequela of avulsion fracture, of indeterminate age. No acute fracture is otherwise seen. Talocrural articulation is maintained. Slight asymmetry of the ankle mortise, suspected to be due to positioning/technique. The anterior calcaneal process, visualized fifth metatarsal base appears intact.. Small distal Achilles tendon chronic calcification. XR/XR ankle RT 2V IMPRESSION: Small calcification/ossification adjacent medial malleolus, could reflect sequela of avulsion injury, from indeterminate age. No acute fracture is otherwise seen. XR/XR hip RT min 2V IMPRESSION: No acute process. Degenerative changes as described. I reviewed records from the following: PCP Assessment & Plan Assessment & Plan (1) Degenerative joint disease of right hip: Code(s): M16.11 - Unilateral primary osteoarthritis, right hip Category: Medical Qualifiers: Osteoarthritis type: primary Qualified Code(s): M16.11 - Unilateral primary osteoarthritis, right hip (2) Right knee DJD: Code(s): M17.11 - Unilateral primary osteoarthritis, right knee Category: Medical Qualifiers: Osteoarthritis type: primary Qualified Code(s): M17.11 - Unilateral primary osteoarthritis, right knee (3) Right leg pain: Code(s): M79.604 - Pain in right leg Category: Medical (4) Lumbar spondylosis: Code(s): M47.816 - Spondylosis without myelopathy or radiculopathy, lumbar region Category: Medical Plan On exam and history, I suspect pain is coming from right hip DJD and right knee DJD. His exam shows limited right hip ROM which could be from DJD. He is however thinking this is sciatica however exam do not show signs of lumbar radiculitis. We will further investigate. Lumbar xrays today. Sending him to PT. His previous episode of pain like this in 2020 resolved spontaneously/conservatively so we hope it would do the same. He will contact PCP for further tramadol prescription. Assessment and plan discussed with patient, and patient was agreeable. All questions were answered thoroughly. Follow up 4-6 weeks. Elvira Jones MD, REYNA Board Certified, [place] [employer] and Rehabilitation (ABPMR) Board Certified, [place] [employer] Electro[employer] (ABEM) Orders: Orders 2 PT Evaluation and Treatment Today M16.11 - Unilateral primary osteoarthritis, right hip, M17.11 - Unilateral primary osteoarthritis, right knee, M47.816 - Spondylosis without myelopathy or radiculopathy, lumbar region, M79.604 - Pain in right leg XR lumbar spine 2-3V Today M54.9 - Dorsalgia, unspecified, M79.604 - Pain in right leg Coding Level of Care Code New Pt Level 4 (07143) Diagnoses Primary osteoarthritis of right hip M16.11 Osteoarthritis type: primary Primary osteoarthritis of right knee M17.11 Osteoarthritis type: primary Right leg pain M79.604 Lumbar spondylosis M47.816
== END 2024-10-07 10:46 | disposition home or self-care (01) ==
PROVIDERS: PCP Internal Medicine; Visit Provider Physical Medicine & Rehabilitation
DX: M16.11 Unilateral primary osteoarthritis, right hip (principal); M17.11 Unilateral primary osteoarthritis, right knee; M79.604 Pain in right leg; M47.816 Spondylosis without myelopathy or radiculopathy, lumbar region
CPT/HCPCS: 99203

== ENCOUNTER 2024-10-07 08:17 | Outpatient (REF) | payer MEDICARE, SELFPAY | END 2024-10-07 08:18 | disposition home or self-care (01) | LOC: HO.HOSX 08:17 | PROVIDERS: PCP Internal Medicine; Visit Provider Physical Medicine & Rehabilitation | DX: M54.9 Dorsalgia, unspecified (principal); M79.604 Pain in right leg | CPT/HCPCS: 72100; 99202 ==

== ENCOUNTER → 2024-10-07 09:04 | Outpatient (BNV) | payer MEDICARE, SELFPAY | PROVIDERS: PCP Internal Medicine; Visit Provider Radiology Diagnostic Radiology | DX: M51.362 Other intervertebral disc degeneration, lumbar region with discogenic back pain and lower extremity pain (principal) | CPT/HCPCS: 72100 ==

== ENCOUNTER 2024-11-18 09:48 | Outpatient (AMB) | payer MEDICARE, SELFPAY ==
--- NOTE | 2024-11-18 09:50 | A.OFFVIS_ITS ---
Vital Signs 11/18/24 09:51 Height 5 ft 11 in Weight 193 lb BMI 26.9 Intake Visit Reasons: O/V LBP 6 week follow up Intake Note: Rod 69 yr old male presents today for his follow up visit S/P P.T for his right hip and lumbar pain. States he is continuing to attend P.T and helps. 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 Allergies acetaminophen [From Tylenol] Adverse Reaction (Intermediate, Verified 11/18/24 09:54) stomach pain Medication List - Last Reconciled 11/18/24 by Elvira Jones MD aspirin 81 mg PO DAILY clonazepam 0.5 mg PO DAILY multivitamin 1 tab PO DAILY tramadol 50 mg PO Q8H PRN triazolam 0.25 mg PO BEDTIME PRN HPI Comments Details: Started with right knee and leg pain summer 2023. It has progressed into a right-sided lower back pain that radiates down the right leg with numbness/paresthesias and 5th toe and plantar aspect of foot. He has started physical therapy with some relief but temporary. He has noted that carrying/shopping 40 lb bags, snow blowing, or even bending down to wash dishes would trigger right-sided radicular pain to the leg. Please refer to past note for other details. Patient had lumbar x-ray done on last visit, but has not been officially read yet by Radiology. It showed endplate spurs, and decreased disc space L4-5 and L5-S1. [facility] Medical History (Updated 11/18/24 @ 10:12 by Elvira Jones MD) Emphysema of lung Nicotine dependence, cigarettes, uncomplicated Tubular adenoma of colon (~2011) Anxiety Surgical History History of umbilical hernia repair History of cholecystectomy History of surgery on lower extremity History of colonoscopy History of tonsillectomy Family History Father Cardiac muscle disease Mother Lung cancer Son Colon cancer Family/Other Mental health disorder Substance use disorder Social History Housing: House Alcohol intake: current Alcohol intake frequency: a few times a month Patient Tobacco Use Status: Current everyday Tobacco user Tobacco use type: Cigarette Cigarettes Per Day: 10 Years Smoked: (current smoker, 1ppd x 53yrs, now 1/2ppd - 50pyh) e-Cigarette/Vaping Use: Never Used Second Hand Smoke Exposure: Yes service: No Current occupational status: retired Current occupation: right hand Cognitive needs: No Hearing needs: No Vision needs: Yes Review of Systems Const All systems reviewed & are unremarkable except as noted in HPI and below Physical Exam Vital Signs: BMI result Body Mass Index 26.9 Constitutional: Patient appears to be in no acute distress, well nourished and well developed. Patient was appropriately conversant and oriented. Good historian. MSK: No specific abnormalities found on inspection of the spine and all extremities. No pain with palpation over the lumbar area. No tenderness over SI or GT. Neurological: Neurologic examination of the upper and lower extremities was nonfocal with intact sensation, muscle stretch reflexes and without focal motor deficits . No footdrop. Babinski was down going bilaterally. Clonus was negative. Gait is non-antalgic without loss of balance. Results Reviewed Results Reviewed: I independently reviewed the results of the following: Lumbar x-rays above Assessment & Plan Assessment & Plan (1) Lumbar disc herniation: Code(s): M51.26 - Other intervertebral disc displacement, lumbar region Category: Medical (2) Lumbar radiculopathy: Code(s): M54.16 - Radiculopathy, lumbar region Category: Medical Plan Suspect he has a disc herniation L5-S1 or nerve impingement S1 nerve root, that would explain his S1 radicular symptoms. Patient had undergone adequate conservative management including PT without improvement of condition. It would be reasonable to obtain further imaging such as MRI. An MRI would help rule out any serious condition, guide treatment and assess prognosis for recovery. Spec ifically ruling out right L5-S1 or right S1 nerve impingement. We talked about treatment options if you do see a disc herniation, including but not limited to continued PT, injections in her referral to neuro spine. Assessment and plan discussed with patient, and patient was agreeable. All questions were answered thoroughly. Telehealth follow up after MRI. Elvira Jones MD, REYNA Board Certified, [place] [employer] and [employer] (ABPMR) Board Certified, [place] [employer]ostic [employer] (ABEM) Orders: Orders MR lumbar spine wo con Today M51.26 - Other intervertebral disc displacement, lumbar region, M54.16 - Radiculopathy, lumbar region Coding Level of Care Code Est Pt Level 4 (02866) Diagnoses Lumbar disc herniation M51.26 Lumbar radiculopathy M54.16
[2024-11-18 09:51] VITALS: BMI 26.9
== END 2024-11-18 10:24 | disposition home or self-care (01) ==
PROVIDERS: PCP Internal Medicine; Visit Provider Physical Medicine & Rehabilitation
DX: M51.26 Other intervertebral disc displacement, lumbar region (principal); M54.16 Radiculopathy, lumbar region
CPT/HCPCS: 99214

== ENCOUNTER → 2024-11-18 09:48 | Outpatient (BNVA) | payer MEDICARE, SELFPAY | PROVIDERS: PCP Internal Medicine; Visit Provider Physical Medicine & Rehabilitation | DX: M51.26 Other intervertebral disc displacement, lumbar region (principal); M54.16 Radiculopathy, lumbar region | CPT/HCPCS: 99212 ==

== ENCOUNTER 2024-11-20 14:06 | Outpatient (REF) | payer MEDICARE, SELFPAY ==
--- NOTE | ~2024-11-20 | MR_ITS ---
CLINICAL HISTORY: M51.26 - Other intervertebral disc displacement, lumbar region MR lumbar spine without gadolinium Comparison: None Findings: Grade 1 retrolisthesis of L2 on L3, L3 on L4, L4 on L5 and L5 on S1. Mild degenerative type endplate marrow changes are present. No acute fracture or pathologic bone lesion. Cauda equina and conus medullaris within normal limits. L1-L2: Mild broad-based disc bulge. No significant narrowing of the central canal or neural foramina. L2-L3: Moderate broad-based disc bulge and moderate left-sided facet osteoarthritis. Mild mass effect on the thecal sac. Mild narrowing of bilateral neural foramina. L3-L4: Moderate broad-based disc bulge. Moderate bilateral facet osteoarthritis. Mild ligamentum flavum hypertrophy. Moderate mass effect on the thecal sac. Mild stenosis of bilateral neural foramina. L4-L5: Moderate broad-based disc bulge. Moderate bilateral facet osteoarthritis. Ligamentum flavum hypertrophy is present. There is moderate mass effect on the thecal sac. There is moderately severe stenosis of the right neural foramen and mild stenosis of the left neural foramen. L5-S1: Moderate broad-based disc bulge. Mild bilateral facet osteoarthritis, [id number]-left. Mild mass effect on the thecal sac. Moderate stenosis of bilateral neural foramina. IMPRESSION: 1. No acute abnormality of the lumbar spine. 2. Multilevel spondylosis and facet osteoarthritis with associated narrowing of the central canal and neural foramina as described. This document has been electronically signed by: Ellie Sloan MD on 11/20/2024 15:50:30
== END 2024-11-20 14:07 | disposition home or self-care (01) ==
LOC: HO.MRI 14:06
PROVIDERS: PCP Internal Medicine; Visit Provider Physical Medicine & Rehabilitation
DX: M51.26 Other intervertebral disc displacement, lumbar region (principal); M54.16 Radiculopathy, lumbar region
CPT/HCPCS: 72148

== ENCOUNTER → 2024-11-20 14:14 | Outpatient (BNV) | payer MEDICARE, SELFPAY | PROVIDERS: PCP Internal Medicine; Visit Provider Radiology Diagnostic Radiology | DX: M47.896 Other spondylosis, lumbar region (principal) | CPT/HCPCS: 72148 ==

== ENCOUNTER 2024-11-23 11:30 | Outpatient (AMB) | payer MEDICARE, SELFPAY ==
--- NOTE | 2024-11-23 11:37 | A.OFFPC_ITS ---
Vital Signs 11/23/24 11:39 Height 5 ft 11 in Weight 198 lb 2 oz BMI 27.6 BP 120/62 Blood Pressure Location Lt brachial Position Sitting Pulse 77 Pulse Source Pulse Oximeter Temp 97.5 F Temp Source Skin Pulse Oximetry (%) 98 Oxygen Delivery Method Room Air Intake Visit Reasons: 6 Month F/U Intake Note: Patient is here to follow up on Lumbar radiculopathy. Pt decline flu shot today. 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: Not Required per policy Accompanied by: Self / Same As Patient Allergies acetaminophen [From Tylenol] Adverse Reaction (Intermediate, Verified 11/23/24 11:39) stomach pain Medication List - Last Reconciled 11/24/24 by Bob Ferrell MD aspirin 81 mg PO DAILY clonazepam 0.5 mg PO DAILY multivitamin 1 tab PO DAILY tramadol 50 mg PO Q8H PRN triazolam 0.25 mg PO BEDTIME PRN Tobacco use date assessed: 11/23/24 Fall risk assessment: No Falls in past year Last assessed Fall Risk: 11/23/24 Dental Screening Dental Screen Date: 11/23/24 Did you have a dental visit in the last 12 months?: No Did you have a dental problem in the last 6 months where you did not have access to dental care?: No Was dental information given to patient?: No HPI 6 Month F/U HPI Details chronic back pain and seeing [facility] Medical History (Updated 11/18/24 @ 10:12 by Elvira Jones MD) Emphysema of lung Nicotine dependence, cigarettes, uncomplicated Tubular adenoma of colon (~2011) Anxiety Surgical History History of umbilical hernia repair History of cholecystectomy History of surgery on lower extremity History of colonoscopy History of tonsillectomy Family History Father Cardiac muscle disease Mother Lung cancer Son Colon cancer Family/Other Mental health disorder Substance use disorder Social History Housing: House Alcohol intake: current Alcohol intake frequency: a few times a month Patient Tobacco Use Status: Current everyday Tobacco user Tobacco use type: Cigarette Cigarette Packs Per Day: 0.5 Cigarettes Per Day: 10 Years Smoked: (current smoker, 1ppd x 53yrs, now 1/2ppd - 50pyh) e-Cigarette/Vaping Use: Never Used Second Hand Smoke Exposure: Yes service: No Current occupational status: retired Current occupation: right hand Cognitive needs: No Hearing needs: No Vision needs: Yes (Glasses) Questionnaire PHQ-9 Over the last 2 weeks, how often have you been bothered by any of the following problems? 1. Little interest or pleasure in doing things: not at all 2. Feeling down, depressed, or hopeless: not at all 3. Trouble falling or staying asleep, or sleeping too much: not at all 4. Feeling tired or having little energy: not at all 5. Poor appetite or overeating: not at all 6. Feeling bad about yourself - or that you are a failure or have let yourself or your family down: not at all 7. Trouble concentrating on things, such as reading the newspaper or watching television: not at all 8. Moving or speaking so slowly that other people could have noticed. Or the opposite - being so fidgety or restless that you have been moving around a lot more than usual: not at all 9. Thoughts that you would be better off or of hurting yourself in some way: not at all Total score: 0 Depression Screening Interpretation: Negative Depression Screening Done: Yes Source: Developed by Drs. Dwaine Sorensen, Janene Guzman, Sotero Ambrose and colleagues, with an educational nikolas from [employer]. Thrive Questionnaire Date Thrive assessed: 11/23/24 I am a: Patient What is your living situation today?: I have a steady place to live Within the past 12 months, did the food you bought not last and you didn't have the money to get more?: Never true Within the past 12 months, did you worry whether your food would run out before you got money to buy more?: Never true Do you have trouble paying for medicines?: No Do you have trouble getting transportation to medical appointments?: No Do you have trouble paying your heating and electricity bill?: No Do you have trouble taking care of your child, family member or friend?: No Do you have trouble with day-to-day activities such as bathing, preparing meals, shopping, managing finances, etc.?: No Are you currently unemployed and looking for a job?: No Are you interested in more education?: No Please select the resources that you would like help with: None Currently or been in a relationship where the following occur: No concerns reported THRIVE Score: 0 AUDIT C Alcohol Use Questionnaire (AUDIT-C) 2. How many drinks containing alcohol do you have on a typical day when you are drinking?: 1 or 2 3. How often do you have six or more drinks on one occasion?: Never Total Score: 0 JIMMY-7 AMB Questionnaire JIMMY-7 Date JIMMY - 7 assessed: 11/23/24 Feeling nervous, anxious, or on edge: 0 = Not at all Not being able to stop or control worryin = Not at all Worrying too much about different things: 0 = Not at all Trouble relaxin = Not at all Being so restless that it is hard to sit still: 0 = Not at all Becoming easily annoyed or irritable: 0 = Not at all Feeling afraid as if something awful might happen: 0 = Not at all Total JIMMY-7 score (0-4 normal; 5-9 mild; 10-14 moderate; 15-21 severe): 0 Source: Developed by Drs. Dwaine Sorensen, Janene Guzman, Sotero Ambrose and colleagues, with an educational nikolas from [employer]. Review of Systems Const Denies chills, Denies headache(s) and Denies weight loss ENT Denies headache(s) Card Denies chest pain, Denies syncope, Denies irregular heart rhythm and Denies dyspnea Resp Denies chest congestion, Denies cough and Denies dyspnea GI Denies abdominal pain, Denies change in stool character, Denies nausea and Denies vomiting Musc Denies deformity and Denies joint swelling Neuro Denies syncope and Denies headache(s) Physical exam (Primary Care) Vital Signs: Last Vital Signs Temp 97.5 F 11/23/24 11:39 Pulse 77 11/23/24 11:39 BP 120/62 11/23/24 11:39 Pulse Ox 98 11/23/24 11:39 Oxygen Delivery Method Room Air 11/23/24 11:39 BMI result Body Mass Index 27.6 Tobacco/Smoking Status: Tobacco use Status Tobacco use date assessed 11/23/24 11/23/24 11:44 Patient Tobacco Use Status Current everyday Tobacco 11/23/24 11:44 Tobacco use type Cigarette 11/23/24 11:44 e-Cigarette/Vaping Use Never Used 11/23/24 11:44 PHQ-9: PHQ-9 Score PHQ-9: Total score 0 11/23/24 11:44 Depression Screening Interpretation: Negative Thrive Assessment: Date of Thrive Assessment Date Thrive assessed 11/23/24 11/23/24 11:44 Currently or been in a relationship where the following occur: No concerns reported Const General: cooperative, comfortable, no acute distress and alert Neck Neck: Yes no lymphadenopathy Thyroid: Thyroid normal Resp Effort & Inspection: normal respiratory effort Auscultation: clear to auscultation bilaterally Percussion: percussion normal Cardio Jugular venous distension: no JVD Palpation: normal PMI Rate: regular rate Rhythm: regular rhythm Heart sounds: S1 normal heart sound present and S2 normal heart sound present GI Inspection: Yes normal to inspection Palpation (GI): No hepatosplenomegaly present Skin General skin exam: no rashes or lesions noted Extrem General: Yes no clubbing, cyanosis or edema Coding Level of Care Code Est Pt Level 3 (48827) Diagnoses Lumbar radiculopathy M54.16 Assessment & Plan Assessment & Plan (1) Lumbar radiculopathy: Code(s): M54.16 - Radiculopathy, lumbar region Category: Medical Plan: stable; same rx Medications: Refilled clonazepam 0.5 mg PO DAILY 90 tabs 5RF
[2024-11-23 11:39] VITALS: BP 120/62; PULSE 77; TEMP 36.4; O2SAT 98; BMI 27.6
== END 2024-11-23 12:02 | disposition home or self-care (01) ==
PROVIDERS: PCP Internal Medicine; Visit Provider Internal Medicine
DX: M54.16 Radiculopathy, lumbar region (principal)

== ENCOUNTER → 2024-11-23 11:30 | Outpatient (BNVA) | payer MEDICARE, SELFPAY | PROVIDERS: PCP Internal Medicine; Visit Provider Internal Medicine | DX: M54.16 Radiculopathy, lumbar region (principal) | CPT/HCPCS: 99212 ==

== ENCOUNTER 2024-12-05 09:42 | Outpatient (AMB) ==
[2024-12-05 09:51] VITALS: BP 138/90; PULSE 81; O2SAT 95; BMI 27.8
--- NOTE | 2024-12-05 09:51 | MHC.OFFVIS ---
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 He also reports difficulty sitting aggravates his pain and bending backwards makes his pain worse. He reports that bending forward does not aggravate his pain. He can not sleep normally because of his pain, he can take care of himself but he can not function normally. He is retired individual. He tried tramadol for his pain and says it does not help his pain. In terms of tissue damage his pain is stabbing, lancinating, spreading, radiating, piercing. He had multiple images performed including MRI of the lumbar spine in 2023. Dictation is as below. He had extensive course of physical therapy at [facility] in [facility] he reports some pain and mobility improvement from the physical therapy. He never received any injections. His past medical history significant for history of gallstones. He had gallbladder surgery in 2020, he had left leg surgery in 2016. He admits smoking cigarettes quarter pack per day for many years he drinks 2 beers a week, he drinks soda and drinks caffeinated beverages. He denies recreational drugs. [facility] Medical History (Updated 12/05/24 @ 10:19 by Leo Trujillo MD) Emphysema of lung Nicotine dependence, cigarettes, uncomplicated Tubular adenoma of colon (~2011) Anxiety Surgical History History of umbilical hernia repair History of cholecystectomy History of surgery on lower extremity History of colonoscopy History of tonsillectomy Family History Father Cardiac muscle disease Mother Lung cancer Son Colon cancer Family/Other Mental health disorder Substance use disorder Social History Housing: House Alcohol intake: current Alcohol intake frequency: a few times a month Patient Tobacco Use Status: Current everyday Tobacco user Tobacco use type: Cigarette Cigarette Packs Per Day: 0.5 Cigarettes Per Day: 10 Years Smoked: (current smoker, 1ppd x 53yrs, now 1/2ppd - 50pyh) e-Cigarette/Vaping Use: Never Used Second Hand Smoke Exposure: Yes service: No Current occupational status: retired Current occupation: right hand Cognitive needs: No Hearing needs: No Vision needs: Yes (Glasses) Review of Systems Const Reports no additional complaints ENT Reports Normal hearing present Card Reports no additional complaints Resp Reports no additional complaints GI Reports no additional complaints Reports no additional complaints Musc Reports as per HPI Neuro Reports Normal hearing present, Denies Abnormal speech present, Denies confusion and Denies Sensory deficit (Neuro) Psych Denies confusion Physical Exam Vital Signs: Last Vital Signs Pulse 81 12/05/24 09:51 BP 138/90 H 12/05/24 09:51 Pulse Ox 95 12/05/24 09:51 Oxygen Delivery Method Room Air 12/05/24 09:51 BMI result Body Mass Index 27.8 Const General: no acute distress; No confusion Orientation/consciousness: patient oriented x3 and No confusion Eyes General: appearance normal, both eyes and all related structures Pupils: Equal, round and reactive pupils present EOM: EOMs intact bilaterally Neck Neck: Yes full ROM Chest Chest palpation & inspection: normal inspection of the chest Resp Effort & Inspection: normal respiratory effort, able to speak in complete sentences, normal respiratory pattern, no audible wheezes and no cough Cardio Jugular venous distension: no JVD GI Inspection: Yes normal to inspection Back/Spine/Pelvis Other: Valsalva maneuver is negative for pain increase. Flexing forward does not aggravate his pain however flexing backwards aggravate his pain. Loading test is positive on the right. Pelvic compression test and Kahil test is positive on the right. Rotation of the right hip might be positive for hip arthritis problem. He reports pain in the groin. SLR is negative bilaterally. Thigh thrust test is positive on the right. Neuro General: patient oriented x3, gait normal and No confusion Cranial nerves: Yes CN's II-XII intact bilaterally, Yes Equal, round and reactive pupils present, Yes Normal hearing present and Yes Ability to bilaterally elevate shoulders present Speech: No Abnormal speech present Gait exam (Neuro): Normal gait present Motor exam (neuro): 5/5 motor strength present throughout Sensory Exam: No Sensory deficit (Neuro) Extrem General: No pedal edema Psych Speech and movement: Normal speech and movement present Affect: normal affect Attitude: cooperative Thought process: Normal thought process present Thought content: Normal thought content present Insight: Good insight present (Psych) Judgement: Good judgement present (Psych) Results Reviewed Results Reviewed: MR lumbar spine without gadolinium Comparison: None Findings: Grade 1 retrolisthesis of L2 on L3, L3 on L4, L4 on L5 and L5 on S1. Mild degenerative type endplate marrow changes are present. No acute fracture or pathologic bone lesion. Cauda equina and conus medullaris within normal limits. L1-L2: Mild broad-based disc bulge. No significant narrowing of the central canal or neural foramina. L2-L3: Moderate broad-based disc bulge and moderate left-sided facet osteoarthritis. Mild mass effect on the thecal sac. Mild narrowing of bilateral neural foramina. L3-L4: Moderate broad-based disc bulge. Moderate bilateral facet osteoarthritis. Mild ligamentum flavum hypertrophy. Moderate mass effect on the thecal sac. Mild stenosis of bilateral neural foramina. L4-L5: Moderate broad-based disc bulge. Moderate bilateral facet osteoarthritis. Ligamentum flavum hypertrophy is present. There is moderate mass effect on the thecal sac. There is moderately severe stenosis of the right neural foramen and mild stenosis of the left neural foramen. L5-S1: Moderate broad-based disc bulge. Mild bilateral facet osteoarthritis, [id number]-left. Mild mass effect on the thecal sac. Moderate stenosis of bilateral neural foramina. IMPRESSION: 1. No acute abnormality of the lumbar spine. 2. Multilevel spondylosis and facet osteoarthritis with associated narrowing of the central canal and neural foramina as described. Assessment & Plan Assessment & Plan (1) Spondylosis of lumbar region without myelopathy or radiculopathy: Code(s): M47.816 - Spondylosis without myelopathy or radiculopathy, lumbar region Category: Medical (2) Disc degeneration, lumbar: Code(s): M51.369 - Other intervertebral disc degeneration, lumbar region without mention of lumbar back pain or lower extremity pain Category: Medical (3) Vertebrogenic low back pain: Code(s): M54.51 - Vertebrogenic low back pain Category: Medical (4) Sacroiliitis: Code(s): M46.1 - Sacroiliitis, not elsewhere classified Category: Medical (5) Sacroiliac joint dysfunction of right side: Code(s): M53.3 - Sacrococcygeal disorders, not elsewhere classified Category: Medical Plan 1. To improve the sleep of this patient I will start him on tizanidine 2 mg t.i.d.. I explained to him that he can not take 1, 1-1/2, 2 or maybe even 3 pills at night to help his sleep. 2. 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 3. Also sacroiliitis suspected on the right. I will schedule this patient for diagnostic sacroiliac joint injection. I will see this patient after diagnostic sacroiliac joint injection. 4. If sacroiliac joint injection will not help his pain medial branch blocks should be planned. Medications: New tizanidine 2 mg PO TID PRN 90 tabs 8RF muscle spasticity 30 days Discontinued tramadol Discontinued Reason: Doctor's Order 50 mg PO Q8H PRN 20 tabs 2RF pain Coding Level of Care Code New Pt Level 3 (97688) Diagnoses Spondylosis of lumbar region without myelopathy or radiculopathy M47.816 Disc degeneration, lumbar M51.369 Vertebrogenic low back pain M54.51 Sacroiliitis M46.1 Sacroiliac joint dysfunction of right side M53.3
== END 2024-12-05 10:12 | disposition home or self-care (01) ==
DX: M47.816 Spondylosis without myelopathy or radiculopathy, lumbar region (principal); M51.369 Other intervertebral disc degeneration, lumbar region without mention of lumbar back pain or lower extremity pain; M54.51 Vertebrogenic low back pain; M46.1 Sacroiliitis, not elsewhere classified; M53.3 Sacrococcygeal disorders, not elsewhere classified
CPT/HCPCS: 99203

== ENCOUNTER → 2024-12-05 09:42 | Outpatient (BNVA) | payer MEDICARE, SELFPAY | PROVIDERS: PCP Internal Medicine; Referring Provider Physical Medicine & Rehabilitation; Visit Provider Anesthesiology | DX: M47.816 Spondylosis without myelopathy or radiculopathy, lumbar region (principal); M51.369 Other intervertebral disc degeneration, lumbar region without mention of lumbar back pain or lower extremity pain; M54.51 Vertebrogenic low back pain; M46.1 Sacroiliitis, not elsewhere classified; M53.3 Sacrococcygeal disorders, not elsewhere classified | CPT/HCPCS: 99202 ==

== ENCOUNTER 2024-12-29 11:02 | Outpatient (AMB) | payer MEDICARE, SELFPAY ==
--- NOTE | 2024-12-29 11:02 | A.OFFVIS_ITS ---
Intake Visit Reasons: Tel-Lumber spine MRI review Intake Note: Rod 69 yr old male presents today for via telehealth visit for his MRI review of his lumbar spine. Allergies acetaminophen [From Tylenol] Adverse Reaction (Intermediate, Verified 12/05/24 09:53) stomach pain HPI Comments Details: Started with right knee and leg pain summer 2023. It has progressed into a right-sided lower back pain that radiates down the right leg with numbness/paresthesias and 5th toe and plantar aspect of foot. He has started physical therapy with some relief but temporary. He has noted that carrying/shopping 40 lb bags, snow blowing, or even bending down to wash dishes would trigger right-sided radicular pain to the leg. Please refer to past note for other details. Patient had lumbar x-ray done on previous visit, that showed endplate spurs, and decreased disc space L4-5 and L5-S1. He was referred to Pain Management for medication and possible injection treatment. Seen by Dr. Trujillo 12/05/24. MRI done, to be reviewed today. [facility] Medical History (Updated 12/29/24 @ 11:29 by Elvira Jones MD) Emphysema of lung Nicotine dependence, cigarettes, uncomplicated Tubular adenoma of colon (~2011) Anxiety Surgical History History of umbilical hernia repair History of cholecystectomy History of surgery on lower extremity History of colonoscopy History of tonsillectomy Family History Father Cardiac muscle disease Mother Lung cancer Son Colon cancer Family/Other Mental health disorder Substance use disorder Social History Housing: House Alcohol intake: current Alcohol intake frequency: a few times a month Patient Tobacco Use Status: Current everyday Tobacco user Tobacco use type: Cigarette Cigarette Packs Per Day: 0.5 Cigarettes Per Day: 10 Years Smoked: (current smoker, 1ppd x 53yrs, now 1/2ppd - 50pyh) e-Cigarette/Vaping Use: Never Used Second Hand Smoke Exposure: Yes service: No Current occupational status: retired Current occupation: right hand Cognitive needs: No Hearing needs: No Vision needs: Yes (Glasses) Telehealth Telehealth Telehealth Platform: Telephone Location of provider rendering services: practice address Location of patient: address on file Patient Identification confirmed using: Name, : Yes Telehealth method: voice only Patient verbally consented to treatment: Yes Patient verbally consented to billing insurance company: Yes Patient informed of any privacy concerns related to visit: Yes Minutes spent on Phone/Video with Pt.: 20 Results Reviewed Results Reviewed: MR lumbar spine without gadolinium Comparison: None Findings: Grade 1 retrolisthesis of L2 on L3, L3 on L4, L4 on L5 and L5 on S1. Mild degenerative type endplate marrow changes are present. No acute fracture or pathologic bone lesion. Cauda equina and conus medullaris within normal limits. L1-L2: Mild broad-based disc bulge. No significant narrowing of the central canal or neural foramina. L2-L3: Moderate broad-based disc bulge and moderate left-sided facet osteoarthritis. Mild mass effect on the thecal sac. Mild narrowing of bilateral neural foramina. L3-L4: Moderate broad-based disc bulge. Moderate bilateral facet osteoarthritis. Mild ligamentum flavum hypertrophy. Moderate mass effect on the thecal sac. Mild stenosis of bilateral neural foramina. L4-L5: Moderate broad-based disc bulge. Moderate bilateral facet osteoarthritis. Ligamentum flavum hypertrophy is present. There is moderate mass effect on the thecal sac. There is moderately severe stenosis of the right neural foramen and mild stenosis of the left neural foramen. L5-S1: Moderate broad-based disc bulge. Mild bilateral facet osteoarthritis, [id number]-left. Mild mass effect on the thecal sac. Moderate stenosis of bilateral neural foramina. IMPRESSION: 1. No acute abnormality of the lumbar spine. 2. Multilevel spondylosis and facet osteoarthritis with associated narrowing of the central canal and neural foramina as described. Assessment & Plan Assessment & Plan (1) Lumbar stenosis with neurogenic claudication: Code(s): M48.062 - Spinal stenosis, lumbar region with neurogenic claudication Category: Medical (2) Lumbar radiculitis: Code(s): M54.16 - Radiculopathy, lumbar region Category: Medical Plan MRI showed symmetric disc bulge and facet degeneration causing spinal stenosis, L3-4 L4-5 and L5-S1. He has claudication symptoms, though worse on right side. I will refer him to neurospine to see if there is surgical option for him. He has done PT, helped with axial back pain but not the leg symptoms, per patient's report. He needs to discuss with Dr. Trujillo whether he would be admitted to their opioid program. He was prescribed by PCP in the past with tramadol and sleepin aid but PCP is retiring. Assessment and plan discussed with patient, and patient was agreeable. All questions were answered thoroughly. Total of 30 minutes spent today including chart review, results review, history taking, physical examination, discussion of assessment and plan, and sales promotion coordinator rdination of care. Evlira Jones MD, REYNA Board Certified, [place] [employer] and [employer] (ABPMR) Board Certified, [place] [employer] (ABEM) Orders: Referrals Neurosurgery Referral M48.062 - Spinal stenosis, lumbar region with neurogenic claudication, M54.16 - Radiculopathy, lumbar region Coding Level of Care Code Tele Est Pt Level 4 (19930) Diagnoses Lumbar stenosis with neurogenic claudication M48.062 Lumbar radiculitis M54.16
--- OUTSIDE RECORDS SUMMARY | 2024-12-29 13:27 | XMS_ITS ---
Author Organization [facility] Address [address] [place] [address] Care Team Providers Care Rn Appeals Name Role Phone Mariaelena JASON, Bob Primary Care Provider Dwaine Churchill Unavailable [phone] Allergies No Known Allergies REASON FOR VISIT Patient presents today for a colon screening Medications Medication SIG (Take, Route, Fr equency, Duration) Notes Start Date End Date Status Triazolam 0.25 MG TAKE 1 TABLET BY VIKY TH EVERY DAY AT BEDTIME NEEDED FOR SLEEP Oral for 90 Active clonazePAM 0.5 MG TAKE 1 TABLET BY VIKY TH EVERY DAY Oral for 90 Active Multivitamin Adult - 1 tablet Orally Onc e a day for 30 day(s) Active Aspirin 81 81 MG 1 tablet Orally Once a day for 30 day(s) Active Social History Tobacco Use: Social History Observation Description Date Details (start date - stop date) Current Smoker NA - NA Tobacco Use/Smoking Question Answer Notes Patient is a current smoker How often do you smoke cigarettes? every day How many cigarettes a day do you smoke? 6-10 How soon after you wake up do you smoke your fir st cigarette? 31-60 minutes Are you interested in quitting? Ready to quit Alcohol Screen Question Answer Notes Did you have a drink contain ing alcohol in the past year? Yes How many drinks did you have on a typical day when you were drinking in the past year? 1 or 2 drinks (0 point) How often did you have 6 or more drinks on one occasion in the past year? Never (0 point) Points 0 Interpretation Negative Section Notes: Smoker; occasional alcohol Problems Problem Type SNOMED Code ICD Code Onset Dates Problem Status W/U Status Risk Notes Problem 388203556 Colon cancer screening (Z12.11) Active confirmed Problem 537197418 History of adenomatous polyp of colon (Z86.010) Active confirmed Problem 366722011863588 Preprocedural examination (Z01.818) Active confirmed Vital Signs Temperature 97.8 degrees Fahrenheit 12/01/19 24 Blood pressure systolic 00 mm Hg 12/01/19 24 Blood pressure diastolic 00 mm Hg 024 Height 71.25 in 12/01/2023 Weight 195 lbs 12/01/2023 BMI 27.00 kg/m2 12/01/2023 Encounters Encounter Location Date Provider Diagnosis [facility] [address] [place] [address] 12/01/2023 Dwaine Delgado Colon cancer screeni ng Z12.11 ; Preprocedural examination Z01.818 and History of adenomatous polyp of colon Z86.010 Assessments Encounter Date Diagnosis (ICD Code) Assessment Notes Treatment Notes Treatment Clinical Notes Section Notes 12/01/2023 Colon cancer screening (ICD-10 - Z12.11) Overall, Mireille appears quite well. Given his age, good clinical appearance, history of tubular adenomas of the colon, last colonoscopy being over 10 years ago, and his son's history of colon cancer, I did recommend a followup colonoscopy for further screening purposes. We did review the rationale for this in regard to colon cancer prevention. Full consent is obtained for this, including risks of bleeding and perforation. He was advised to stop aspirin for one week before the procedure. The procedure will be done with monitored anesthesia care. Mireille was comfortable with this plan. Thank you again for allowing me to participate in Mireille's care. I shall continue to keep you advised of his progress. 12/01/2023 Preprocedural examination (ICD-10 - Z01.818) Overall, Mireille appears quite well. Given his age, good clinical appearance, history of tubular adenomas of the colon, last colonoscopy being over 10 years ago, and his son's history of colon cancer, I did recommend a followup colonoscopy for further screening purposes. We did review the rationale for this in regard to colon cancer prevention. Full consent is obtained for this, including risks of bleeding and perforation. He was advised to stop aspirin for one week before the procedure. The procedure will be done with monitored anesthesia care. Mireille was comfortable with this plan. Thank you again for allowing me to participate in Mireille's care. I shall continue to keep you advised of his progress. 12/01/2023 History of adenomatous polyp of colon (ICD-10 - Z86.010) Overall, Mireille appears quite well. Given his age, good clinical appearance, history of tubular adenomas of the colon, last colonoscopy being over 10 years ago, and his son's history of colon cancer, I did recommend a followup colonoscopy for further screening purposes. We did review the rationale for this in regard to colon cancer prevention. Full consent is obtained for this, including risks of bleeding and perforation. He was advised to stop aspirin for one week before the procedure. The procedure will be done with monitored anesthesia care. Mireille was comfortable with this plan. Thank you again for allowing me to participate in Mireille's care. I shall continue to keep you advised of his progress. Plan Of Treatment Future Test Test Name Order Date COLONOSCOPY 12/01/2023 Next Appt Details Follow Up: prn, Reason: Progress Notes * MIREILLE FRANCISCODOB:1955 ([age] yo M)Acc No.[id number]:12/01/2023 Progress Notes Patient:?MIREILLE FRANCISCO Provider:?Dwaine Delgado MD :1955???Age:68 Y???Sex:Male Jesse e:12/01/2023 Address:[address] [place] [address] Pcp:Bob Ferrell MD Subjective: * Chief Complaints: * ???Patient presents today fo r a colon screening * HPI: ???incontinence:? I saw Mireille in the office today for evaluation of his personal history of tubular adenomas of the colon, family history of colon cancer, and need for colorectal cancer screening. ?I last saw Mireille in 2011, at which time he underwent a screening colonoscopy with removal of 2 small tubular adenomas. He never came back for his 5 year followup colonoscopy as he was always too busy working that involved a lot of travel. However, he presently feels very well. He enjoys a good appetite, without any significant heartburn or dysphagia. His bowel movements have been regular and without any signs of bleeding. He denies abdominal pain, jaundice, nor weight loss. His family history is notable for his son having developed colon cancer at age 35 and dying from that at about age 45. * ROS:?General/Constitutional:?Change in appetite?denies.?Chills?denies.?Fatigue?denies.?Ophthalmologic:?Patient denies? Negative..?ENT:?Patient denies?Negative..?Respiratory:?Patient denies?No coughing/hemoptysis..?Cardiovascular:?Patient denies? No chest pain/orthopnea..?Gastrointestinal:?Comments?See HPI for details.?Genitourinary:?Patient denies? No dysuria/hematuria..?Musculoskeletal:?Patient denies? No specific arthralgias/myalgias..?Skin:?Patient denies?No rash/pruritus..?Neurologic:?Patient denies? No headaches/seizures..?Psychiatric:?Patient denies?Negative..? * Medical History:? * Surgical History:?cholecyste ctomy roken leg surgery 2017 * Hospitalization/Major Diagno stic Procedure:?No Hospitalization History. * Family History:?Father: dece ased.?Mother: .? Son age 35 diagnosed with colon cancer and at age 45. * Social History:?Tobacco Use:?Tobacco Use/Smoking?Patient is a?current smoker,?How often do you smoke cigarettes??every day,?How many cigarettes a day do you smoke??6-10,?How soon after you wake up do you smoke your first cigarette??31-60 minutes,?Are you interested in quitting??Ready to quit.?Drugs/Alcohol:?Alcohol Screen?Did you have a drink containing alcohol in the past year??Yes,?How many drinks did you have on a typical day when you were drinking in the past year??1 or 2 drinks (0 point),?How often did you have 6 or more drinks on one occasion in the past year??Never (0 point),?Points?0,?Interpretation?Negative.?Miscellaneous:?Marital status: single. Occupation: [employer]- travels internationally/ retired. ???Smoker; occasional alcohol. * Medications:?TakingAspirin 8 1 81 MG Tablet Delayed Release 1 tablet Orally Once a dayMultivitamin Adult - Tablet 1 tablet Orally Once a dayclonazePAM 0.5 MG Tablet TAKE 1 TABLET BY MOUTH EVERY DAY Oral Triazolam 0.25 MG Tablet TAKE 1 TABLET BY MOUTH EVERY DAY AT BEDTIME NEEDED FOR SLEEP Oral Taking Aspirin 81 81 MG Tablet Delayed Release 1 tablet Orally Once a dayTaking Multivitamin Adult - Tablet 1 tablet Orally Once a dayTaking clonazePAM 0.5 MG Tablet TAKE 1 TABLET BY MOUTH EVERY DAY Oral Taking Triazolam 0.25 MG Tablet TAKE 1 TABLET BY MOUTH EVERY DAY AT BEDTIME NEEDED FOR SLEEP Oral DiscontinuedMoviPrep 100 GM Solution Reconstituted as directed Orally onceMedication List reviewed and reconciled with the patientDiscontinued MoviPrep 100 GM Solution Reconstituted as directed Orally onceMedication List reviewed and reconciled with the patient * Allergies:?N.K.D.A.yes[Aller gies Verified] Objective: * Vitals:?Wt: 195 lbs, Ht: 71. 25 in, BMI:27.00 Index, BP: 00/00 mm Hg, Temp: 97.8. * Examination: ???General Examination: ?GENERAL APPEARANCE:?pleasant, well nourished, well developed, in no acute distress.?EYES:?sclera non-icteric.?ORAL CAVITY:?mucosa moist.?NECK/THYROID:?no cervical lymphadenopathy, neck supple.?SKIN:?nonjaundiced, no spider angiomata..?HEART:?S1, S2 normal.?LUNGS:?clear to auscultation bilaterally.?ABDOMEN:?normal bowel sounds, no guarding or rigidity, no hepatosplenomegaly, no masses palpable, soft, nontender, nondistended..?EXTREMITIES:?no edema.?NEUROLOGIC:?alert and oriented.? Assessment: * Assessment: 1.?Preprocedural examination - Z01.818 (Primary)?2.?Colon cancer screening - Z12.11?3.?History of adenomatous polyp of colon - Z86.010? Overall, Mireille appears quite well. Given his age, good clinical appearance, history of tubular adenomas of the colon, last colonoscopy being over 10 years ago, and his son's history of colon cancer, I did recommend a followup colonoscopy for further screening purposes. We did review the rationale for this in regard to colon cancer prevention. Full consent is obtained for this, including risks of bleeding and perforation. He was advised to stop aspirin for one week before the procedure. The procedure will be done with monitored anesthesia care. Mireille was comfortable with this plan. Thank you again for allowing me to participate in Mireille's care. I shall continue to keep you advised of his progress. Plan: * Treatment: 2.?History of adenomatous polyp of colon?Procedure: COLONOSCOPY (Ordered for 12/01/2023)* with MACsched for 03/04/24 at 9:30 ammiralax * Procedure Codes:?3017F COLOR ECTAL CA SCREEN DOC [id number] Pt scrn tbco and id as [id number] BP SCR NOT PRFRM REC REASON NOS * Preventive Medicine:? ??Counseling:?Care goal follow-up plan:?Above Normal BMI Follow-up?Giving encouragement to exercise,?BMI management provided?Yes.? * Follow Up:?prn * * Sign off status: Completed true * Provider:?Dwaine Delgado MD Date:? 024 Generated for Phoebe medina/Tiffanie/eTdinorahsmitting on:?12/29/2024 01:27 PM EST History and Physical Notes * HPI (History of Present Illness) Category Sub-Category Detail Notes Category Not es incontinence I saw Mireille in the office today for evaluation of his personal history of tubular adenomas of the colon, family history of colon cancer, and need for colorectal cancer screening. I last saw Mireille in 2011, at which time he underwent a screening colonoscopy with removal of 2 small tubular adenomas. He never came back for his 5 year followup colonoscopy as he was always too busy working that involved a lot of travel. However, he presently feels very well. He enjoys a good appetite, without any significant heartburn or dysphagia. His bowel movements have been regular and without any signs of bleeding. He denies abdominal pain, jaundice, nor weight loss. His family history is notable for his son having developed colon cancer at age 35 and dying from that at about age 45. Examination Category Sub-Category Detail Notes Category Not es General Examination GENERAL APPEARANCE: pleasant , well nourished, well developed, in no acute distress EYES: sclera non-icteric NECK/THYROID: no cervical lymphade nopathy, neck supple HEART: S1, S2 normal LUNGS: clear to auscultatio n bilaterally ABDOMEN: normal bowel sounds, no guarding or rigidity, no hepatosplenomegaly, no masses palpable, soft, nontender, nondistended. NEUROLOGIC: alert and oriented SKIN: nonjaundiced, no spi ellie angiomata. EXTREMITIES: no edema ORAL CAVITY: mucosa moist
--- OUTSIDE RECORDS SUMMARY | 2024-12-29 13:27 | XMS_ITS | Clinical Summary ---
Author Organization [facility] [employer] Address [address] [facility] [place] [address] Care Team Providers Care Regional Retail Sales Manager Name Role Phone Bob Ferrell MD Primary Care Provider Immunizations Name Administration Dates Next Due Fluzone Trivalent High Dose (65+ years) 10/25/20 20 Social History Tobacco Use Types Packs/Day Years Used Date Smoking Tobacco: Never Assessed Sex and Gender Information Value Date Recorded Sex Assigned at Not on file Legal Sex Male 6:07 PM EST Gender Identity Not on file Sexual Orientation Not on file Plan of Treatment Health Maintenance Due Date Last Done Comments Colorectal Cancer: COLONOSCO PY Screening every 10 yrs (or Modifier) 1955 Depression: Screening Annual ly using PHQ-2/9 in Adults 18 yrs or above (or HM Modifier)([facility]) 1973 Hepatitis C Virus Infection in Adolescents and Adults: Screening (or Modifier) ([facility]) 1973 SDOH Screening Reminder: Almita bloom for all adults ([facility]) 1973 Tobacco Smoking Cessation: i n Adults excluding Women: Behavioral and Pharmacotherapy Interventions ([facility]) 1973 DTaP/Tdap/Td Vaccines ([facility]) (1 - Tdap) 1974 Lipid Screening: Every 5 yrs for Men aged 35+ (or HM Modifier) ([facility]) 1991 Colorectal Cancer Screening 45 -75 Yrs (or HM Modifier) 2000 Colorectal Cancer: FLEXIBLE SIGMOIDOSCOPY Screening every 5 yrs 2000 Colorectal Cancer: Fecal Imm unochemical Test (FIT) Annually [facility] 2000 Colorectal Cancer: High-sens itivity gFOBT Screening Annually [facility] 2000 Colorectal Cancer: Stool Col oguard Screening every 3 yrs 2000 Colorectal Cancer:CT Colonog mitra Screening every 5 yrs 2000 Zoster/Shingles Vaccine Seri es Screening: Adults aged 18+ yrs (or HM Modifiers)([facility]) (1 of 2) 2005 Pneumococcal Vaccination Scr eening: Patients 65+ yrs of age ([facility]) (1 of 1 - PCV) 2020 Flu Vaccination: Ages 65+: Y early High Dose Recommended (or Modifier)([facility]) 05/26/2024 10/25/2020 COVID-19 Vaccine Screening: Initial Series and Booster Status ([facility]) ( - 2023- season) 2024 RSV Vaccines (1 - 1-dose 75+ series) 2030 Medical Devices Not on file Care Teams Regional Retail Sales Manager Relationship Specialty Start Date End Date Bob Ferrell MD [address] [place] [address] [place] [address] PCP - General Internal Medicine 10/25/20
--- OUTSIDE RECORDS SUMMARY | 2024-12-29 13:27 | XMS_ITS ---
Author Organization [facility] Address [address] [place] [address] Care Team Providers Care Synchro Assembler Name Role Phone Bob Ferrell MD Primary Care Provider Unavaila Dwaine Pinto Unavailable [phone] REASON FOR VISIT screening,hx polyps Problems Problem Type SNOMED Code ICD Code Onset Dates Problem Status W/U Status Risk Notes Problem Diverticular disease of colon (811275316) Diverticulosis of large intestine without perforation or abscess without bleeding (K57.30) Active confirmed Encounters Encounter Location Date Provider Diagnosis [facility] [address] [place], [place] [id number] 03/04/2024 Dwaine Delgado Encounter for scre ening [...] No Information Progress Notes * MIREILLE FRANCISCODOB:1955 ([age] yo M)Acc No.[id number]:03/04/2024 COLON WITH MAC Patient:?MIREILLE FRANCISCO Provider:?Dwaine Delgado MD :1955???Age:68 Y???Sex:Male Jesse e:03/04/2024 Address:[address] [place] [address] , [address] Pcp:Bob Ferrell MD Subjective: * Chief Complaints: * ???1. Screening,hx polyps. * Medical History:? Objective: * Vitals:? Assessment: * Assessment: 1.?Encounter for screening c olonoscopy - Z12.11 (Primary)???2.?Colon polyps - K63.5???3.?Diverticulosis of large intestine without perforation or abscess without bleeding - K57.30???4.?Internal hemorrhoids - K64.8??? Plan: * Treatment: * Procedure Codes:?07603 COLON OSCOPY AND BIOPSY, Modifiers: PT , 0529F INTRVL 3+YRS PTS CLNSCP DOCD, Modifiers: 8P , 0528F RCMND FLW-UP 10 YRS DOCD, Modifiers: 1P * * The named appointment provid er may or may not be the originator of this progress note, and it is not deemed complete until electronically signed by the appointment provider. Sign off status: Pending * Provider:?wDaine Delgado MD Date:? 024 Generated for Phoebe medina/Tiffanie/Yesseniaitting on:?12/29/2024 01:26 PM EST
--- OUTSIDE RECORDS SUMMARY | 2024-12-29 13:27 | XMS_ITS | Patient Health Record ---
Author Organization [facility] Address [address] [place] [address] Care Team Providers Care Gas Welding Machine Operator Name Role Phone Mariaelena JASON, Bob Primary Care Provider Dwaine Churchill Unavailable [phone] Allergies No Known Allergies Results Component Value Reference Range Notes Pathology (Not yet reviewed by provider) Interpretation: Performing Lab:[facility], [address] [place] [phone] Notes/Report: Name: Mireille Slade ge/Sex: 68/M : 1955 Unit#: [id number] Attend Dr: Dwaine Delgado Re03/04/24 Status : [facility] Location: [facility] Disch: SPEC : [id number] RECD : 03/04/24-114 STATUS: TIM FELIZ NUM: [id number] VALERIANO: 03/04/24-[address] [facility] [address]: Dwaine Delgado ENTERED: 03/04/24- 06 SP TYPE: Surgical OTHR DR: Bob Ferrell MD ORDERED: HE Stain/3, Gross Micro L4 Diagnosis Colon, transverse, p olypectomy: Tubular adenoma; negative for high-grade dysplasia. Clinical History Pre-Op Dx: Screening Post-Op Dx: Colon polyp Microscopic Description Microscopic sections reviewed. Material Received Transverse colon polyp Gross Description Received in formalin labeled ?transverse colon polyp? are 3 fragments of duran-white and red- pink soft tissue bari suring 0.2-0.3 cm in greatest dimension which are wrapped in lens paper and entirely submitt ed for microscopic examination, 3 pieces in cassette A. Copies To: Bob Ferrell MD [address] [place] [address] Dwaine Delgado [address] [place] [address] [address] [place] [address] Signed (si gnature on file) Julissa Reinoso MD 03/08/24 0742 END OF REPORT Reason For Referral No Information Medications Medication SIG (Take, Route, Fr equency, [...] Interpretation Negative Section Notes: Smoker; occasional alcohol Smoker; occasional alcohol Problems Problem Type SNOMED Code ICD Code Onset Dates Problem Status W/U Status Risk Notes Problem 425291455 Colon cancer screening (Z12.11) Active confirmed Problem 340901303 History of adenomatous polyp of colon (Z86.010) Active confirmed Problem Diverticular disease of colon (680014254) Diverticulosis of large intestine without perforation or abscess without bleeding (K57.30) Active confirmed Problem 330489661096196 Preprocedural examination (Z01.818) Active confirmed Encounters Encounter Location Date Provider Diagnosis [facility] [address] [place] [phone] 03/04/2024 Dwaine Delgado Encounter for scre ening [...] hemorrhoids (ICD-10 - K64.8) Plan Of Treatment Pending Test Test Name Order Date Pathology 03/04/2024 Future Test Test Name Order Date COLONOSCOPY 07/20/2012 COLONOSCOPY 12/01/2023 Insurance Providers Payer Name Payer Address Payer Phone Subscriber Number Group Number Insured Name Patient Relationship to Insured Coverage Start Date Coverage End Date [facility] [address] [place] [address] [id number] MIREILLE SLADE Self - patient is the insured Medical (General) History Medical History History ICD Code Denies NV,DM,CVA,renal disease Told of emphysema on a scree wilma chest CT, but not on any medication nor inhalers Anxiety Screening colonoscopy in 201 2 revealed small tubular adenomas that were removed Surgical History Surgery Date(Month/Year) cholecystectomy 2022 broken leg surgery 2016
--- OUTSIDE RECORDS SUMMARY | 2024-12-29 13:27 | XMS_ITS ---
Author Organization [facility] Address [address] [place] [address] Care Team Providers Care Beam Worker Name Role Phone Mariaelena JASON, Bob Primary Care Provider Dwaine Churchill [facility] [phone] REASON FOR VISIT Patient presents today for a COLON SCREENING Encounters Encounter Location Date Provider Diagnosis [facility] [address] [place] [phone] 11/20/2023 Dwaine Delgado Plan Of Treatment No Information Progress Notes * MIREILLE FRANCISCODOB:1955 ([age] yo M)Acc No.[id number]:11/20/2023 Progress Notes Patient:?MIREILLE FRANCISCO Provider:?Dwaine Delgado MD :1955???Age:68 Y???Sex:Male Jesse e:11/20/2023 Address:[address] [place] [address] , [address], [place], [place] Pcp:Bob Ferrell MD Subjective: * Chief Complaints: * ???1. Patient presents today for a COLON SCREENING. * Medical History:? Objective: * Vitals:? Assessment: Plan: * Treatment: * * The named appointment provid er may or may not be the originator of this progress note, and it is not deemed complete until electronically signed by the appointment provider. Sign off status: Pending * Provider:?Dwaine Delgado MD Date:? 024 Generated for Phoebe medina/Tiffanie/Hussain on:?12/29/2024 01:26 PM EST
== END 2024-12-29 11:27 | disposition home or self-care (01) ==
LOC: HO.HOS 11:02
PROVIDERS: PCP Internal Medicine; Visit Provider Physical Medicine & Rehabilitation
DX: M48.062 Spinal stenosis, lumbar region with neurogenic claudication (principal); M54.16 Radiculopathy, lumbar region
CPT/HCPCS: 99214

== ENCOUNTER → 2024-12-29 11:02 | Outpatient (BNVA) | payer MEDICARE, SELFPAY | PROVIDERS: PCP Internal Medicine; Visit Provider Physical Medicine & Rehabilitation ==

== ENCOUNTER 2025-01-06 10:19 | Outpatient (AMB) | payer MEDICARE, SELFPAY ==
--- NOTE | 2025-01-06 10:22 | A.SPINEOV_ITS ---
Vital Signs 01/06/25 10:33 Height 5 ft 11 in Weight 200 lb BMI 27.9 Intake Visit Reasons: LBP Intake Note: Mr. Slade is here today c/o Low back pain that radiates to the Right hip/leg. Yarn Hauler Required: No Allergies acetaminophen [From Tylenol] Adverse Reaction (Intermediate, Verified 01/06/25 10:33) stomach pain Physical Exam Vital Signs: BMI result Body Mass Index 27.9 Assessment & Plan Assessment & Plan (1) Lumbar stenosis with neurogenic claudication: Code(s): M48.062 - Spinal stenosis, lumbar region with neurogenic claudication Category: Medical Plan: Dear colleague Thank you for referring Rod Slade to the office today with a chief complaint of severe right leg pain. HPI: This 69-year-old retired male comes in crying from pain. Pain radiates from his back to his knee and can go down to his ankle. The pain started 6 months ago his knee pain but has severely progressed over time. He can not walk or stand for any prolonged period of times. Sitting the pain reduces to 6/10. Pain medications in the form of anti-inflammatory drugs provided no relief. He completed a course of physical therapy without success. He was evaluated by pain management who did not offer him any interventions. He denies weakness or numbness. The left side is unaffected Comes to see me for a permanent solution. PMH: Cholecystectomy Medications: Clonazepam Allergies: Tylenol Social history: Retired. Smokes few cigarettes per day Physical Exam: Pleasant male in obvious agony. Height 6 ft weight 200 lb. He describes the pain in an L4 dermatome while sitting. Standing immediately increases the pain intensity. Ambulates with a limp due to pain. Motor and sensory exam are intact. Radiological Studies: MRI done at [facility] on 11/20/2024 shows severe right L4 foraminal stenosis with compression of the nerve root. Impression/Plan: This gentleman is suffering from severe lumbar radiculopathy/unilateral neurogenic claudication due to right severe L4 foraminal stenosis. I recommended a right L4 foraminotomy to decompress the nerve root to relieve his radiculopathy. He is in severe pain and therefore I created a spot relatively quickly on 01/18/2025. I also wrote him a 1 time script for tramadol to hold over until surgery is being performed. Thank you for allowing me to participate in your patients care. total time spent was 50 minutes in counseling ,coordination of plan, personal review of imaging, surgical decision making and subsequent plan Rohit Davis MD, PhD Spine Fellowship Trained Neurosurgeon Director, [facility] Medications: New tramadol 50 mg PO TID PRN 45 tabs 0RF pain Coding Level of Care Code New Pt Level 4 (43132) Diagnoses Lumbar stenosis with neurogenic claudication M48.062
[2025-01-06 10:33] VITALS: BMI 27.9
--- OUTSIDE RECORDS SUMMARY | 2025-01-06 11:42 | XMS_ITS | Patient Health Record ---
Author Organization [facility] Address [address] [place] [address] Care Team Providers Care Patient Registration Specialist Name Role Phone Mariaelena JASON, Bob Primary Care Provider Dwaine Churchill Unavailable [phone] Allergies No Known Allergies Results Component Value Reference Range Notes Pathology (Not yet reviewed by provider) Interpretation: Performing Lab:[facility], [address] [place] [id number] Notes/Report: Name: Mireille Slade ge/Sex: 68/M : 1955 Unit#: [id number] Attend Dr: Dwaine Delgado Re03/04/24 Status : [facility] Location: [facility] Disch: SPEC : [id number] RECD : 03/04/24-114 STATUS: TIM FELIZ NUM: [id number] VALERIANO: 03/04/24-[address] [facility] [address]: Dwaine Delgado ENTERED: 03/04/24- 06 [...] Bob Ferrell MD [address] [place] [address] Dwaine Delgado [address] [place] [address] [address] [place] [address] Signed (si gnature on file) Julissa Reinoso [...] Problem Status W/U Status Risk Notes Problem 929439067 Colon cancer screening (Z12.11) Active confirmed Problem 955905098 History of adenomatous polyp of colon (Z86.010) Active confirmed Problem Diverticular disease of colon (198244406) Diverticulosis of large intestine without perforation or abscess without bleeding (K57.30) Active confirmed Problem 728543022868039 Preprocedural examination (Z01.818) Active confirmed Encounters Encounter Location Date Provider Diagnosis [facility] [address] [place] [phone] 03/04/2024 Dwaine Delgado Encounter for scre ening [...] Insured Coverage Start Date Coverage End Date [facility] [address] [place] [address] [id number] MIREILLE SLADE Self - patient is the insured Medical (General) History Medical History History ICD Code Denies [place],DM,CVA,renal disease Told of emphysema on a scree wilma chest CT, but not on any medication nor inhalers Anxiety Screening colonoscopy in 201 2 revealed small tubular adenomas that were removed Surgical History Surgery Date(Month/Year) cholecystectomy 2022 broken leg surgery 2016
--- OUTSIDE RECORDS SUMMARY | 2025-01-06 11:43 | XMS_ITS ---
Author Organization [facility] Address [address] [place] [address] Care Team Providers Care Egg Separator Name Role Phone Mariaelena JASON, Bob Primary Care Provider Dwaine Churchill Unavailable [phone] Allergies No Known Allergies REASON FOR VISIT [...] Problem Status W/U Status Risk Notes Problem 745623449 Colon cancer screening (Z12.11) Active confirmed Problem 796060255 History of adenomatous polyp of colon (Z86.010) Active confirmed Problem 413780890353382 Preprocedural examination (Z01.818) Active confirmed Vital Signs Temperature 97.8 degrees Fahrenheit 12/01/19 24 Blood pressure systolic 00 mm Hg 12/01/19 24 Blood pressure diastolic 00 mm Hg 024 Height 71.25 in 12/01/2023 Weight 195 lbs 12/01/2023 BMI 27.00 kg/m2 12/01/2023 Encounters Encounter Location Date Provider Diagnosis [facility] [address] [place] [address] 12/01/2023 Dwaine Delgado Colon cancer screeni ng [...] * MIREILLE FRANCISCODOB:1955 ([age] yo M)Acc No.[id number]:12/01/2023 Progress Notes Patient:?MIREILLE FRANCISCO Provider:?Dwaine Delgado MD :1955???Age:68 Y???Sex:Male Jesse e:12/01/2023 Address:[address] [place] [address] Pcp:Bob Ferrell MD Subjective: * Chief Complaints: [...] year??Never (0 point),?Points?0,?Interpretation?Negative.?Miscellaneous:?Marital status: single. 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 ???Smoker; occasional alcohol. * [...] Procedure Codes:?3017F COLOR ECTAL CA SCREEN DOC [id number] Pt scrn tbco and id as [id number] BP SCR NOT PRFRM REC REASON NOS * Preventive Medicine:? ??Counseling:?Care goal follow-up plan:?Above Normal BMI Follow-up?Giving encouragement to exercise,?BMI management provided?Yes.? * Follow Up:?prn * * Sign off status: Completed true * Provider:?Dwaine Delgado MD Date:? 024 Generated for Phoebe medina/Tiffanie/eTransmitting on:?01/06/2025 11:43 AM EDT History and Physical Notes * HPI (History [...]
--- OUTSIDE RECORDS SUMMARY | 2025-01-06 11:43 | XMS_ITS ---
Author Organization [facility] Address [address] [place] [address] Care Team Providers Care Goodwill Representative Name Role Phone Bob Ferrell MD Primary Care Provider Unavaila Dwaine Pinto Unavailable [phone] REASON FOR VISIT screening,hx polyps Problems Problem Type SNOMED Code ICD Code Onset Dates Problem Status W/U Status Risk Notes Problem Diverticular disease of colon (271109262) Diverticulosis of large intestine without perforation or abscess without bleeding (K57.30) Active confirmed Encounters Encounter Location Date Provider Diagnosis [facility] Out[facility] [address] [place], [place] [id number] 03/04/2024 Dwaine Delgado Encounter for scre ening [...] * MIREILLE FRANCISCODOB:1955 ([age] yo M)Acc No.[id number]:03/04/2024 COLON WITH MAC Patient:?MIREILLE FRANCISCO Provider:?Dwaine Delgado MD :1955???Age:68 Y???Sex:Male Jesse e:03/04/2024 Address:[address] [place] [address] , [address] Pcp:Bob Ferrell MD Subjective: * Chief Complaints: * ???1. Screening,hx polyps. * Medical History:? Objective: * Vitals:? Assessment: * Assessment: 1.?Encounter for screening c olonoscopy - Z12.11 (Primary)???2.?Colon polyps - K63.5???3.?Diverticulosis of large intestine without perforation or abscess without bleeding - K57.30???4.?Internal hemorrhoids - K64.8??? Plan: * Treatment: * Procedure Codes:?49906 COLON OSCOPY AND BIOPSY, Modifiers: PT , [...] Delgado MD Date:? 024 Generated for Phoebe medina/Tiffanie/Aurelianosmitting on:?01/06/2025 11:42 AM EDT
--- OUTSIDE RECORDS SUMMARY | 2025-01-06 11:43 | XMS_ITS | Clinical Summary ---
Author Organization [facility] [employer] Address [address] [facility] [place] [address] Care Team Providers Care Sales Department Clerk Name Role Phone Bob Ferrell MD Primary [...] Adults 18 yrs or above (or HM Modifier)([facility]) 1973 Hepatitis C Virus Infection in Adolescents and Adults: Screening (or Modifier) ([facility]) 1973 SDOH Screening Reminder: Almita bloom for all adults ([facility]) 1973 Tobacco Smoking Cessation: i n Adults excluding Women: Behavioral and Pharmacotherapy Interventions ([facility]) 1973 DTaP/Tdap/Td Vaccines ([facility]) (1 - Tdap) 1974 Lipid Screening: Every 5 yrs for Men aged 35+ (or HM Modifier) ([facility]) 1991 Colorectal Cancer Screening 45 -75 Yrs (or HM Modifier) 2000 Colorectal Cancer: FLEXIBLE SIGMOIDOSCOPY Screening every 5 yrs 2000 Colorectal Cancer: Fecal Imm unochemical Test (FIT) Annually [facility] 2000 Colorectal Cancer: High-sens itivity gFOBT Screening Annually [facility] 2000 Colorectal Cancer: Stool Col oguard Screening every 3 yrs 2000 Colorectal Cancer:CT Colonog mitra Screening every 5 yrs 2000 Zoster/Shingles Vaccine Seri es Screening: Adults aged 18+ yrs (or HM Modifiers)([facility]) (1 of 2) 2005 Pneumococcal Vaccination Scr eening: Patients 65+ yrs of age ([facility]) (1 of 1 - PCV) 2020 Flu Vaccination: Ages 65+: Y early High Dose Recommended (or Modifier)([facility]) 05/26/2024 10/25/2020 COVID-19 Vaccine Screening: Initial Series and Booster Status ([facility]) ( - 2023- season) 2024 RSV Vaccines (1 - 1-dose 75+ series) 2030 [employer] Not on file Care Teams Sales Department Clerk Relationship Specialty Start Date End Date Bob Ferrell MD [address] [place] [address] [place] [address] PCP - General Internal Medicine 10/25/20
--- OUTSIDE RECORDS SUMMARY | 2025-01-06 11:43 | XMS_ITS ---
Author Organization [facility] Address [address] [place] [address] Care Team Providers Care Master Control Operator Name Role Phone Mariaelena JASON, Bob Primary Care Provider Dwaine Churchill [facility] [phone] REASON FOR VISIT Patient presents today for a COLON SCREENING Encounters Encounter Location Date Provider Diagnosis [facility] [address] [place] [phone] 11/20/2023 Dwaine Delgado Plan Of Treatment No Information Progress Notes * MIREILLE FRANCISCODOB:1955 ([age] yo M)Acc No.[id number]:11/20/2023 Progress Notes Patient:?MIREILLE FRANCISCO Provider:?Dwaine Delgado MD :1955???Age:68 Y???Sex:Male Jesse e:11/20/2023 Address:[address] [place] [address] , [address], [place], [place] Pcp:Bob Ferrell MD Subjective: * Chief Complaints: [...] Delgado MD Date:? 024 Generated for Phoebe medina/Tiffanie/Husasin on:?01/06/2025 11:42 AM EDT
== END 2025-01-06 11:25 | disposition home or self-care (01) ==
LOC: HO.HNS 10:20
PROVIDERS: PCP Internal Medicine; Referring Provider Physical Medicine & Rehabilitation; Visit Provider Neurological Surgery
DX: M48.062 Spinal stenosis, lumbar region with neurogenic claudication (principal)
CPT/HCPCS: 99204

== ENCOUNTER → 2025-01-06 10:19 | Outpatient (BNVA) | payer MEDICARE, SELFPAY | PROVIDERS: PCP Internal Medicine; Referring Provider Physical Medicine & Rehabilitation; Visit Provider Neurological Surgery | DX: M48.062 Spinal stenosis, lumbar region with neurogenic claudication (principal) | CPT/HCPCS: 99202 ==

== ENCOUNTER → 2025-01-17 11:41 | Outpatient (BNV) | payer MEDICARE, SELFPAY | PROVIDERS: PCP Internal Medicine; Visit Provider Internal Medicine Cardiovascular Disease | DX: R94.31 Abnormal electrocardiogram [ECG] [EKG] (principal); Z01.810 Encounter for preprocedural cardiovascular examination | CPT/HCPCS: 93010 ==

== ENCOUNTER 2025-01-18 07:52 | Day surgery (SDC) | payer MEDICARE, SELFPAY ==
[2025-01-17 11:16] VITALS: BP 145/91; PULSE 81; RESP 20; O2SAT 96; BMI 26.8
--- NOTE | 2025-01-17 11:41 | ECG_ITS ---
Test Reason : pre op Blood Pressure : */* mmHG Vent. Rate : 75 BPM Atrial Rate : 75 BPM P-R Int : 186 ms QRS Dur : 100 ms QT Int : 362 ms P-R-T Axes : 50 20 46 degrees QTcB Int : 404 ms Normal sinus rhythm with sinus arrhythmia Minimal voltage criteria for LVH, may be normal variant ( Dionte product ) Nonspecific T wave abnormality Abnormal ECG No previous ECGs available Referred By: Katrin Garcia Electronically Signed By: LILIA CHRISTENSEN MD
[2025-01-17 12:18] LABS: MANUAL DIFF FLAG NO
[2025-01-17 12:47] LABS: Basophils Percent Auto 0.3 % (0-2); Eosinophils Absolute Auto 0.2 X10*3/uL (0.0-0.4); Eosinophils Percent Auto 1.4 % (0-4); Hematocrit 46.1 % (42.0-52.0); Hemoglobin 15.4 g/dl (14.0-18.0); Imm Gran Abs Auto 0.09 X10*3/uL (0.00-0.03); Imm Gran Pct Auto 0.7 % (0.0-0.4); Lymphocytes Absolute Auto 2.4 X10*3/uL (1.2-4.9); Lymphocytes Percent Auto 19.4 % (20-40); Mean Corpuscular HGB Conc 33.4 g/dl (31.0-36.0); Mean Corpuscular Hemoglobin 31.9 pg (27.0-33.0); Mean Corpuscular Volume 95.4 fL (80.0-98.0); Mean Platelet Volume 9.4 fL (9.4-12.4); Monocytes Absolute Auto 0.7 X10*3/uL (0.1-1.2); Monocytes Percent Auto 5.6 % (2-11); Neutrophils Absolute Auto 8.9 x10*3/uL (2.0-8.3); Neutrophils Percent Auto 72.6 % (45-73); Platelet Count 337 X10*3/uL (160-400); Red Blood Count 4.83 X10*6/uL (4.60-5.80); Red Cell Distribution Width 12.4 % (11.0-16.0); White Blood Count 12.3 X10*3/uL (4.8-10.8)
[2025-01-17 13:05] LABS: Anion Gap 11 (12-20); Blood Urea Nitrogen 11 mg/dL (9-16); Calcium 9.4 mg/dL (8.4-10.2); Carbon Dioxide 27 mmol/L (22-29); Chloride 107 mmol/L (96-108); Creatinine Clr Calc Pharmacy 87.9; Estimated Glomerular Filt Rate > 60; Glucose Random 95 mg/dL (60-115); Potassium 4.9 mmol/L (3.3-5.1); Sodium 140 mmol/L (135-145)
[2025-01-18] VITALS (7 sets, daily range): BP systolic 122–145; BP diastolic 76–82; PULSE 72–90; RESP 10–16; TEMP 36.3–36.7; O2SAT 92–99
--- NOTE | ~2025-01-18 | FL_ITS ---
EXAMINATION: FL GUIDANCE ONLY HISTORY: RIGHT L4 FORAMINOTOMY COMPARISON: None available. TECHNIQUE: Fluoroscopy time: 2.7 seconds. Cumulative Dose: 2.2965 mGy. DAP: 0.6863 mGym2 Images: 2. FINDINGS: Fluoroscopic spot films of the lumbar spine and the lateral projection demonstrate a probe directed toward the L4-5 intervertebral disc space from a posterior approach. FL/FL guidance in OR IMPRESSION: Fluoroscopy during procedure. Please see procedure report for additional information. Electronically signed by: Dwaine Milton MD 01/18/2025 02:07 PM EDT
--- NOTE | 2025-01-18 07:04 | MHC.SHP ---
Pre-Procedural Eval Section A - 24 Hr Update-Section A only Date of Service: 01/18/25 Section B - Complete if H&P > 30 days Chief Complaint: Spinal stenosis, lumbar region with neurogenic cla Allergies: Allergies Allergy/AdvReac Type Severity Reaction Status Date / Time acetaminophen [From Tylenol] AdvReac Intermediate stomach Verified 01/06/25 10:33 pain Review of Systems Sugical H&P ROS: Negative: Constitution, Cardiovascular, Respiratory, Neurological, Psychiatric, Hem-Onc, Allergic/Immunologic, Gastrointestinal, Genitourinary, Musculoskeletal, Integumentary, Endocrine and Eyes/Ears/Nose/Throat Exam Surgical H&P Exam: Not Evaluated: HEENT, Not Evaluated: Heart, Not Evaluated: Lungs, Not Evaluated: Extremities, Not Evaluated: Abdomen, Not Evaluated: Skin and Not Evaluated: Neurological Exam Comment: The patient is awake, alert, no acute distress. Proposed surgical incision site is clean, dry, with no signs of recent surgery or trauma. Plan Diagnosis/Plan: Unchanged I have reviewed the history and physical and performed a pertinent physical examination on my patient. No changes have occurred unless specified. Plan remains the same, right L4 foraminotomy. Time Spent With Patient Time: Total time managing care of this patient today _7___ minutes.
[2025-01-18] MEDS: Gabapentin 300 MG CAPSULE PO (08:30)
[2025-01-18] MEDS: methocarbamoL 750 MG TABLET PO (08:30)
[2025-01-18] MEDS: Lactated Ringers 1,000 ML 80 ML IVCONT (08:47)
--- NOTE | 2025-01-18 10:06 | HO.ANESPROP2 ---
Documented by User: Katrin Garcia MD 01/18/25 10:38 HPI - Anesthesia Eval Consult details Narrative: lumbar surgery PMFSH Active Problems Active Problems: All Active Problems Lumbar radiculitis (Acute) Lumbar stenosis with neurogenic claudication (Acute) Sacroiliac joint dysfunction of right side (Acute) Sacroiliitis (Acute) Vertebrogenic low back pain (Acute) Disc degeneration, lumbar (Acute) Spondylosis of lumbar region without myelopathy or radiculopathy (Acute) Lumbar radiculopathy (Acute) Lumbar disc herniation (Acute) Lumbar spondylosis (Acute) Right leg pain (Acute) Right knee DJD (Acute) Degenerative joint disease of right hip (Acute) Insomnia (Acute) Dysphagia (Acute) Neck pain (Acute) Back pain (Acute) Nicotine dependence, cigarettes, uncomplicated (Acute) Tubular adenoma of colon (Acute ~2011) Anxiety (Acute) Past Medical History Medical History Arthritis Fatty liver Habitual snoring Emphysema of lung Nicotine dependence, cigarettes, uncomplicated Tubular adenoma of colon (~2011) Anxiety Family History Family History Father Cardiac muscle disease Mother Lung cancer Son Colon cancer Family/Other Mental health disorder Substance use disorder Family history of problems with anesthesia: No Surgical History Surgical History Hx of right cataract extraction History of umbilical hernia repair History of cholecystectomy History of surgery on lower extremity History of colonoscopy History of tonsillectomy History of Problems with Anesthesia: No Social History Social History Housing: House Are you a primary care professional to a significant other at home: No Do you presently have visiting nurse or other home services: No Alcohol intake: current Alcohol intake frequency: a few times a week Patient Tobacco Use Status: Current everyday Tobacco user Tobacco use type: Cigarette Cigarette Packs Per Day: 0.5 Cigarettes Per Day: 0.5 Years Smoked: (current smoker, 1ppd x 53yrs, now 1/2ppd - 50pyh) e-Cigarette/Vaping Use: Never Used Second Hand Smoke Exposure: Yes Use of substances other than those prescribed or required for medical reasons: No Have you been hit, kicked, punched, or otherwise hurt by someone within the past year? If so, by whom?: No Are you DNR?: No Advance Directives: No Advance Directives Information Provided: Yes Advance Directives on File: No Recently lost weight without trying: No Eating poorly because of decreased appetite: No Nutrition Risks: No Nutritional Risk Poor oral hygiene: Yes (upper partial, bottom broken missing teeth) service: No Current occupational status: retired Current occupation: right hand Cognitive needs: No Hearing needs: No Vision needs: Yes (Glasses) Meds Allergies Allergy/AdvReac Type Severity Reaction Status Date / Time acetaminophen [From Tylenol] AdvReac Intermediate stomach Verified 01/06/25 10:33 pain Active Medications: Current Medications Lactated Ringer's (Lr) 1,000 mls @ 80 mls/hr IVCONT .[id number] CIARA Last Admin: 01/18/25 08:47 Dose: 80 mls/hr Home Medications ?Medication ?Instructions ?Recorded ?Confirmed ?Last Taken ?Type multivitamin 1 tab PO DAILY 03/03/24 01/17/25 Unknown History clonazepam 0.5 mg tablet 0.5 mg PO DAILY PRN Anxiety 01/17/25 01/17/25 Unknown History Exam Height,Weight and Vital Signs: Height 6 ft Weight 89.721 kg Last Vital Signs Temp 98.1 F 01/18/25 08:14 Pulse 72 01/18/25 08:14 Resp 14 01/18/25 08:14 BP 135/78 01/18/25 08:14 Pulse Ox 95 01/18/25 08:14 O2 Del Method Room Air 01/18/25 08:14 Pertinent Lab Results Pertinent Lab Results: Laboratory Tests 01/17/25 12:16 WBC 12.3 H RBC 4.83 Hgb 15.4 Hct 46.1 MCV 95.4 MCH 31.9 MCHC 33.4 RDW 12.4 Plt Count 337 MPV 9.4 Immature Gran % (Auto) 0.7 H Neut % (Auto) 72.6 Lymph % (Auto) 19.4 L Dyer % (Auto) 5.6 Eos % (Auto) 1.4 Baso % (Auto) 0.3 Lymph # (Auto) 2.4 Dyer # (Auto) 0.7 Eos # (Auto) 0.2 Baso # (Auto) 0.0 Abs Immat Gran (auto) 0.09 H Absolute Neuts (auto) 8.9 H Absolute Nucleated RBC 0.000 Nucleated RBC % (auto) 0.0 Sodium 140 Potassium 4.9 Chloride 107 Carbon Dioxide 27 Anion Gap 11 L BUN 11 Creatinine 0.87 Estim Creat Clear Calc 87.9 Estimated GFR > 60 Random Glucose 95 Calcium 9.4 Airway Mallampati Class: II TM Dist: >3cm Neck ROM: Limited Partial: Upper Loose/Missing/Broken Teeth: Yes (very poor dentition), Upper and Lower Heart: rrr Lungs: cta Assessment and Plan Assessment Anesthesia Assessment: Anesthesia Plan Discussed Final Anesthetic Review Family History of Problems with Anesthesia: No History of Problems with Anesthesia: No NPO: Yes ASA Class: III Final Preanesthetic Review: No Changes in Pt Med Stat, Meds/Allgs Chart Reviewed, Consent Obtained/Reviewed and Anes Risks/Benef Reviewed Patient Risk: Intermediate Procedure Risk: Intermediate Documented by User: Neetu Kelley MD 01/18/25 10:26 [facility] Past Medical History Medical History Arthritis Fatty liver Habitual snoring Emphysema of lung Nicotine dependence, cigarettes, uncomplicated Tubular adenoma of colon (~2011) Anxiety Family History Family History Father Cardiac muscle disease Mother Lung cancer Son Colon cancer Family/Other Mental health disorder Substance use disorder Surgical History Surgical History Hx of right cataract extraction History of umbilical hernia repair History of cholecystectomy History of surgery on lower extremity History of colonoscopy History of tonsillectomy Social History Social History Housing: House Are you a primary care professional to a significant other at home: No Do you presently have visiting nurse or other home services: No Alcohol intake: current Alcohol intake frequency: a few times a week Patient Tobacco Use Status: Current everyday Tobacco user Tobacco use type: Cigarette Cigarette Packs Per Day: 0.5 Cigarettes Per Day: 0.5 Years Smoked: (current smoker, 1ppd x 53yrs, now 1/2ppd - 50pyh) e-Cigarette/Vaping Use: Never Used Second Hand Smoke Exposure: Yes Use of substances other than those prescribed or required for medical reasons: No Have you been hit, kicked, punched, or otherwise hurt by someone within the past year? If so, by whom?: No Are you DNR?: No Advance Directives: No Advance Directives Information Provided: Yes Advance Directives on File: No Recently lost weight without trying: No Eating poorly because of decreased appetite: No Nutrition Risks: No Nutritional Risk Poor oral hygiene: Yes (upper partial, bottom broken missing teeth) service: No Current occupational status: retired Current occupation: right hand Cognitive needs: No Hearing needs: No Vision needs: Yes (Glasses) Meds Allergies Allergy/AdvReac Type Severity Reaction Status Date / Time acetaminophen [From Tylenol] AdvReac Intermediate stomach Verified 01/06/25 10:33 pain Home Medications ?Medication ?Instructions ?Recorded ?Confirmed ?Last Taken ?Type multivitamin 1 tab PO DAILY 03/03/24 01/17/25 Unknown History clonazepam 0.5 mg tablet 0.5 mg PO DAILY PRN Anxiety 01/17/25 01/17/25 Unknown History Assessment and Plan Anesthetic Plan Anesthetic Plan: GA Disposition: Standard PACU
[2025-01-18] MEDS: ceFAZolin Sodium/Dextrose,Iso 2 GM/50 ML PIGGYBACK IV (10:55)
--- NOTE | 2025-01-18 11:40 | P.OP_ITS ---
Operative Note Operative Note Date of Service: 01/18/25 Narrative: Preoperative Diagnosis: Spinal stenosis/lateral recess stenosis/neural foraminal stenosis Operation: Right L4 Laminotomy, Partial facetectomy and foraminotomy with use of microscope Consent Informed Consent was obtained for this operation. I have explained the nature, purpose and benefits of the operation. I have discussed the risks and benefit of the operation including possible complications or adverse events with patient/family. Alternative(s) were discussed with the patient with their relative benefits and risks as well as the consequences of not accepting the operation were included in obtaining consent. Surgeon: NORMA FUENTES MD, PHD Procedure Assisted By: Raul Zurita PA-C Description of Procedure This 69-year-old patient is suffering from severe right L4 radiculopathy due to severe right L4 neuroforaminal stenosis. The patient was offered a foraminotomy to decompress the nerve root. The procedure complications were explained. The patient was consented. The patient was brought to the operating room and endotracheally intubated. The patient was turned in prone position on the Julian frame. Prep and drape was done followed by timeout. Physician bilingual sales assistant provided access. A mid lumbar incision was made followed by release of the paravertebral muscle on the right side to expose the L4 lamina and facet joint. An intraoperative x-ray was obtained to confirm the correct level. The microscope was brought in. I took over the procedure. The high-speed drill was used to do a L4 laminotomy. #2 Kerrison was used to further remove the lamina towards the L4 foramen. With a nerve hook the medial wall of the L4 pedicle was palpated as well as the beginning of the L4 foramen. The facet joint was partially drilled down after which with a #2 Kerrison a foraminotomy was done. Finally, a fo raminotomy Kerrison was used to complete the foraminotomy. A long nerve hook could be easily passed lateral and dorsally from the nerve root, a sign of relief of the neuroforaminal stenosis and decompression of the nerve root . The microscope was removed. Hemostasis was done. Incision was closed in 2 layers. Steri-Strips were used to approximate incision. An OpSite with Tegaderm was used to cover the incision. All sponge needle counts were correct. Patient was extubated and transported in stable is to recovery room. Anesthesia: General Estimated Blood Loss (ml): Minimal Duration of Surgery: Under 45 Minutes Postoperative Plan: Discharge to home
--- NOTE | 2025-01-18 11:46 | P.DS_ITS ---
DS: Providers Provider Date of Service: 01/18/25 Date of discharge: 01/18/25 Primary care physician: Bob Ferrell MD DS: Summary Time Attestation Discharge Coordination Time (in mins): 12 Quality: Safe Use of Opioids Does Pt have an Active Cancer Diagnosis on the Problem List?: No Quality: Stroke Does the patient have a stroke diagnosis?: No Physical Exam Vital Signs: Vital Signs: Last Vital Signs Temp 98.1 F 01/18/25 08:14 Pulse 72 01/18/25 08:14 Resp 14 01/18/25 08:14 BP 135/78 01/18/25 08:14 Pulse Ox 95 01/18/25 08:14 O2 Del Method Room Air 01/18/25 08:14 BMI result Body Mass Index 26.8 DS: Data Data Completed and Pending Labs on day of discharge: Laboratory Results - last 24 hr 01/17/25 12:16 WBC 12.3 H RBC 4.83 Hgb 15.4 Hct 46.1 MCV 95.4 MCH 31.9 MCHC 33.4 RDW 12.4 Plt Count 337 MPV 9.4 Immature Gran % (Auto) 0.7 H Neut % (Auto) 72.6 Lymph % (Auto) 19.4 L [place] % (Auto) 5.6 Eos % (Auto) 1.4 Baso % (Auto) 0.3 Lymph # (Auto) 2.4 [place] # (Auto) 0.7 Eos # (Auto) 0.2 Baso # (Auto) 0.0 Abs Immat Gran (auto) 0.09 H Absolute Neuts (auto) 8.9 H Absolute Nucleated RBC 0.000 Nucleated RBC % (auto) 0.0 Sodium 140 Potassium 4.9 Chloride 107 Carbon Dioxide 27 Anion Gap 11 L BUN 11 Creatinine 0.87 Estim Creat Clear Calc 87.9 Estimated GFR > 60 Random Glucose 95 Calcium 9.4 Discharge Plan Discharge Patient Disposition: Home, Self-Care Referrals: Bob Ferrell MD [Primary Care Provider] - 1 Week Discharge Medications: New oxycodone 5 mg tablet 5 mg PO Q6H PRN (Reason: pain) Qty: 30 0RF Rx Instructions: Partial Fill upon patient request. Continued triazolam 0.25 mg tablet 0.25 mg PO BEDTIME PRN (Reason: insomnia) Qty: 60 0RF zolpidem [Ambien] 10 mg tablet 10 mg PO BEDTIME PRN (Reason: sleep) Qty: 30 0RF multivitamin Tablet 1 tab PO DAILY clonazepam 0.5 mg tablet 0.5 mg PO DAILY PRN (Reason: Anxiety) tramadol 50 mg tablet 50 mg PO TID PRN (Reason: pain) Qty: 45 0RF Discharge Orders: Discharge Order (Routine); Ordered 01/18/25 Ordered By: Raul Zurita Diet: Advance to usual diet Activity on Discharge: As tolerated Activity Restrictions/Additional Instructions: After your spinal surgery we ask you to observe the following restrictions/guidelines: Activity: It is normal to feel some discomfort as you increase your activity, but that will improve with time. We ask you avoid heavy lifting or acitivities that cause pain. As a general rule, 8lbs is a safe limit for lifting right after surgery. Walk as much as you feel comfortable but not to exhaustion. You will feel extra tired the first few days after surgery. Stay well hydrated. It is OK to walk up and down stairs You may return to driving when you are off narcotics (such as vicodin, oxycodone, dilaudid, etc), and you are back to normal functional capacity. If you have any concerns please check with office before driving. Return to work is specific to each patient and each surgery, so please speak with your doctor/PA at first follow up. Please bring paperwork such as FMLA at that time if you need it filled out. Medications: We recommend you take 1,000mg Tylenol every 8 hours for the first few weeks after surgery, if you do not have any liver issues and can tolerate this medication. Do not exceed 4,000mg daily. We will give you a short supply of narcotics after surgery (usually one weeks worth). If you need more please call the office but do not use more than prescribed. You will need to give our office 48 hours notice if you need narcotics refilled and we do not fill narcotics on weekends or evenings. If you are on a narcotic, it is a good idea to take a stool softener such as colace or senna to avoid constipation If you take blood thinner such as aspirin, Plavix, Coumadin, Effient, Eliquis etc for conditions such as Afib, DVT, Pulmonary embolus, coronary disease, s tents etc please speak with your surgeon about specific details as to when you can resume these medications. You can resume NSAIDs on post op day 1 (eg: Motrin, Naproxen, etc). Follow up: Please call the office, , after surgery to arrange a 3 week follow up for wound check. Wound Care: You may remove your dressing on the first day after surgery. ?You may ?leave open to air. Please do not remove the steri strips underneath. they will fall off on their own in one week. IT IS NORMAL FOR THE WOUND TO OOZE OR BE BLOODY FOR A FEW DAYS AFTER SURGERY. ?IF THIS HAPPENS JUST PLACE NEW DRESSING OVER IT TO AVOID STAINING CLOTHES. You may shower on post op day # 1 We ask that you do not let the water soak the wound. If it does get wet, just towel dry lightly. Please do not scrub your incision or place any type of chemical/ointment on the wound. No tub baths, pools or jacuzzis for one month. If you have any leaking or redness from your wound, or fevers, please call the office. Print Language: Lithuanian
== END 2025-01-18 14:06 | disposition home or self-care (01) ==
PROVIDERS: Anesthesiology; PCP Internal Medicine; Visit Provider Neurological Surgery
PROC: (CPT 63047; principal; 2025-01-18 10:00)
DX: M48.062 Spinal stenosis, lumbar region with neurogenic claudication (principal); R26.2 Difficulty in walking, not elsewhere classified; M79.661 Pain in right lower leg; M25.551 Pain in right hip; J43.9 Emphysema, unspecified; R06.83 Snoring; Z79.899 Other long term (current) drug therapy; Z88.8 Allergy status to other drugs, medicaments and biological substances; Z90.49 Acquired absence of other specified parts of digestive tract; F17.210 Nicotine dependence, cigarettes, uncomplicated; K76.0 Fatty (change of) liver, not elsewhere classified
CPT/HCPCS: 63047; 36415; 80048; 85025; 93005; J0690; J2003; J2250; J2704; J3010

== ENCOUNTER → 2025-01-18 07:52 | Outpatient (BNV) | payer MEDICARE, SELFPAY | PROVIDERS: PCP Internal Medicine; Visit Provider Neurological Surgery | DX: M48.062 Spinal stenosis, lumbar region with neurogenic claudication (principal) | CPT/HCPCS: 63047; 99499 ==

== ENCOUNTER 2025-01-26 09:51 | Outpatient (AMB) | payer MEDICARE, SELFPAY ==
[2025-01-26 09:58] VITALS: BP 100/70; PULSE 69; RESP 18; TEMP 37.1; O2SAT 98; BMI 27.9
--- NOTE | 2025-01-26 09:58 | MHC.PC.OV ---
Vital Signs 01/26/25 09:58 Height 5 ft 11 in Weight 199 lb 12.8 oz BMI 27.9 BP 100/70 Blood Pressure Location Lt brachial Position Sitting Respiration 18 Pulse 69 Pulse Source Pulse Oximeter Temp 98.7 F Temp Source Oral Pulse Oximetry (%) 98 Oxygen Delivery Method Room Air Intake Visit Reasons: [facility] 01/18 Intake Note: Patient is here to follow-up after a day-stay procedure at [facility] in [place], [place] on 01/18/2025 Autoclave Operator Required: No Accompanied by: Self / Same As Patient Allergies acetaminophen [From Tylenol] Adverse Reaction (Intermediate, Verified 01/26/25 20:33) stomach pain Medication List - Last Reconciled 01/26/25 by SUSHILA Spaulding clonazepam 0.5 mg PO DAILY PRN multivitamin 1 tab PO DAILY oxycodone 5 mg PO Q6H PRN triazolam 0.25 mg PO BEDTIME PRN zolpidem (Ambien) 10 mg PO BEDTIME PRN Tobacco use date assessed: 01/26/25 Fall risk assessment: No Falls in past year Last assessed Fall Risk: 01/26/25 Dental Screening Dental Screen Date: 01/26/25 Did you have a dental visit in the last 12 months?: Yes Did you have a dental problem in the last 6 months where you did not have access to dental care?: No Was dental information given to patient?: Patient has dentist HPI [facility] 01/18 HPI Details The patient is a 69-year-old male who is presenting for status post right L4 laminotomy, partial facetectomy and foraminotomy. The patient was diagnosed with spinal stenosis/lateral recess stenosis/neural foraminal stenosis The patient was suffering from severe right L4 radiculopathy due to severe right L4 neural foraminal stenosis Patient is presenting today with complete resolution of symptoms. Reports that he stopped taking the oxycodone. Small incision in lower back noted clean dry and intact no signs of infection Patient is ambulating with normal gait The patient is requesting refill of clonazepam and triazolam [facility] Medical History Arthritis Fatty liver Habitual snoring Emphysema of lung Nicotine dependence, cigarettes, uncomplicated Tubular adenoma of colon (~2011) Anxiety Surgical History H/O lumbosacral spine surgery Hx of right cataract extraction History of umbilical hernia repair History of cholecystectomy History of surgery on lower extremity History of colonoscopy History of tonsillectomy Family History Father Cardiac muscle disease Mother Lung cancer Son Colon cancer Family/Other Mental health disorder Substance use disorder Social History Housing: House Are you a primary health care law specialist to a significant other at home: No Do you presently have visiting nurse or other home services: No Alcohol intake: current Alcohol intake frequency: a few times a week Patient Tobacco Use Status: Current everyday Tobacco user Tobacco use type: Cigarette Cigarette Packs Per Day: 0.5 Years Smoked: (current smoker, 1ppd x 53yrs, now 1/2ppd - 50pyh) e-Cigarette/Vaping Use: Never Used Second Hand Smoke Exposure: Yes service: No Current occupational status: retired Current occupation: right hand Cognitive needs: No Hearing needs: No Vision needs: Yes (Glasses) Questionnaire Thrive Questionnaire Date Thrive assessed: 01/26/25 I am a: Patient What is your living situation today?: I have a steady place to live Within the past 12 months, did the food you bought not last and you didn't have the money to get more?: Never true Within the past 12 months, did you worry whether your food would run out before you got money to buy more?: Never true Do you have trouble paying for medicines?: No Do you have trouble getting transportation to medical appointments?: No Do you have trouble paying your heating and electricity bill?: No Do you have trouble taking care of your child, family member or friend?: No Do you have trouble with day-to-day activities such as bathing, preparing meals, shopping, managing finances, etc.?: No Are you currently unemployed and looking for a job?: No Are you interested in more education?: No Please select the resources that you would like help with: None Currently or been in a relationship where the following occur: No concerns reported THRIVE Score: 0 AUDIT C Alcohol Use Questionnaire (AUDIT-C) 1. How often do you have a drink containing alcohol?: 2-3 times a week 2. How many drinks containing alcohol do you have on a typical day when you are drinking?: 1 or 2 3. How often do you have six or more drinks on one occasion?: Never Total Score: 3 JIMMY-7 AMB Questionnaire JIMMY-7 Date JIMMY - 7 assessed: 11/23/24 Source: Developed by Drs. Dwaine Sorensen, Janene Guzman, Sotero Ambrose and colleagues, with an educational nikolas from [employer]. Review of Systems Const Denies headache(s) Eyes Denies loss of vision ENT Denies vertigo, Denies dizziness, Denies headache(s) and Denies sore throat Card Denies chest pain, Denies leg edema and Denies lightheadedness Resp Denies cough and Denies hemoptysis GI Denies abdominal pain, Denies melena, Denies constipation, Denies diarrhea and Denies vomiting Denies dysuria, Denies urinary frequency and Denies urinary urgency Musc Denies arthralgias, Denies joint swelling, Denies numbness and Denies tingling Neuro Denies Abnormal speech present, Denies behavioral changes, Denies vertigo, Denies dizziness, Denies headache(s), Denies loss of vision, Denies memory loss, Denies numbness and Denies tingling Psych Reports anxiety, Denies behavioral changes, Denies depression, Denies memory loss, Denies panic attacks and Reports other (insomnia) Physical exam (Primary Care) Vital Signs: Last Vital Signs Temp 98.7 F 01/26/25 09:58 Pulse 69 01/26/25 09:58 Resp 18 01/26/25 09:58 BP 100/70 01/26/25 09:58 Pulse Ox 98 01/26/25 09:58 Oxygen Delivery Method Room Air 01/26/25 09:58 BMI result Body Mass Index 27.9 Tobacco/Smoking Status: Tobacco use Status Tobacco use date assessed 01/26/25 01/26/25 10:12 Patient Tobacco Use Status Current everyday Tobacco 01/26/25 10:12 Tobacco use type Cigarette 01/26/25 10:12 e-Cigarette/Vaping Use Never Used 01/26/25 10:12 Thrive Assessment: Date of Thrive Assessment Date Thrive assessed 01/26/25 01/26/25 10:12 Currently or been in a relationship where the following occur: No concerns reported Const General: healthy appearing, no acute distress, alert and awake Nutritional Appearance: well nourished Orientation/consciousness: oriented to person, oriented to place and oriented to time HENMT Ears: TM's normal bilaterally General nose exam: Normal nasal mucous membranes and turbinates present Eyes Conjunctivae: conjunctivae normal Sclerae: sclerae normal Pupils: Equal, round and reactive pupils present Neck Neck: Yes no lymphadenopathy and Yes no JVD Thyroid: Thyroid normal Carotids: no bruits Resp Effort & Inspection: normal respiratory effort and not tachypneic Auscultation: no crackles, no rales, no rhonchi and no wheezes Cardio Rate: regular rate Rhythm: regular rhythm Heart sounds: no murmurs and normal S1 and S2 GI Palpation (GI): Soft to palpation, nontender, no hepatomegaly and no splenomegaly Auscultation: normal bowel sounds Skin General skin exam: no rashes or lesions noted and dry skin Full body images: 1. small incision to lower back. c/d/i no s/sx of infection Neuro General: oriented to person, oriented to place and oriented to time Cranial nerves: Yes Equal, round and reactive pupils present Speech: No Abnormal speech present Gait exam (Neuro): Normal gait present Motor exam (neuro): no tremor noted Extrem Right upper extremity: full ROM Left upper extremity: full ROM Right lower extremity: full ROM; no edema Left lower extremity: full ROM; no edema Psych Mental Status: mental status grossly normal Speech and movement: Normal speech and movement present Affect: normal affect Attitude: cooperative Thought process: Normal thought process present Coding Level of Care Code Est Pt Level 3 (23376) Diagnoses Lumbar stenosis with neurogenic claudication M48.062 Time Spent (min) 34 Assessment & Plan Assessment & Plan (1) Lumbar stenosis with neurogenic claudication: Code(s): M48.062 - Spinal stenosis, lumbar region with neurogenic claudication Category: Medical Plan: s/p right laminotomy, partial facetectomy and foraminotomy with use of microscope-The patient is present with complete resolution of his symptoms. He is ambulating with a normal gait. Lower back surgery site c/d/i, no s/sx of infection. Medications: New clonazepam 0.5 mg PO DAILY PRN 30 tabs 0RF Anxiety Refilled triazolam 0.25 mg PO BEDTIME PRN 30 tabs 0RF insomnia
--- OUTSIDE RECORDS SUMMARY | 2025-01-26 10:30 | XMS_ITS | Patient Health Record ---
Author Organization [facility] Address [address] [place] [address] Care Team Providers Care Bobbin Inspector Name Role Phone Mariaelena JASON, Bob Primary Care Provider Dwaine Churchill Unavailable [phone] Allergies No Known Allergies Results Component Value Reference Range Notes Pathology (Not yet reviewed by provider) Interpretation: Performing Lab:[facility], [address] [place] [phone] Notes/Report: Name: Mireille Slade ge/Sex: 68/M : 1955 Unit#: [id number] Attend Dr: Dwaine Delgado Re03/04/24 Status : [facility] Location: [facility] Disch: SPEC : [id number] RECD : 03/04/24-114 STATUS: TIM FELZI NUM: [id number] VALERIANO: 03/04/24-1050 [facility] DR: Dwaine Delgado ENTERED: 03/04/24- 06 [...] Bob Ferrell MD [address] [place] [address] Dwaine Delgado [address] [place] [address] [address] [place] [address] Signed (si gnature on file) Julissa Reinoso [...] Problem Status W/U Status Risk Notes Problem 780015070 Colon cancer screening (Z12.11) Active confirmed Problem 316458583 History of adenomatous polyp of colon (Z86.010) Active confirmed Problem Diverticular disease of colon (658714252) Diverticulosis of large intestine without perforation or abscess without bleeding (K57.30) Active confirmed Problem 784394221360678 Preprocedural examination (Z01.818) Active confirmed Encounters Encounter Location Date Provider Diagnosis [facility] [place] [address] [place] [id number] 03/04/2024 Dwaine Delgado Encounter for scre ening [...] Insured Coverage Start Date Coverage End Date [facility] [address] [place] [address] [id number] MIREILLE SLADE Self - patient is the insured Medical (General) History Medical History History ICD Code Denies PR,DM,CVA,renal disease Told of emphysema on a scree wilma chest CT, but not on any medication nor inhalers Anxiety Screening colonoscopy in 201 2 revealed small tubular adenomas that were removed Surgical History Surgery Date(Month/Year) cholecystectomy 2022 broken leg surgery 2016
--- OUTSIDE RECORDS SUMMARY | 2025-01-26 10:31 | XMS_ITS ---
Author Organization [facility] Address [address] [place] [phone] Care Team Providers Care Nursery Attendant Name Role Phone Bob Ferrell MD Primary Care Provider Unavaila Dwaine Pinto Unavailable [phone] REASON FOR VISIT screening,hx polyps Problems Problem Type SNOMED Code ICD Code Onset Dates Problem Status W/U Status Risk Notes Problem Diverticular disease of colon (295420295) Diverticulosis of large intestine without perforation or abscess without bleeding (K57.30) Active confirmed Encounters Encounter Location Date Provider Diagnosis [facility] Outpatient [address] [place], [place] [phone] 03/04/2024 Dwaine Delgado Encounter for scre ening [...] * MIREILLE FRANCISCODOB:1955 ([age] yo M)Acc No.[id number]:03/04/2024 COLON WITH MAC Patient:?MIREILLE FRANCISCO Provider:?Dwaine Delgado MD :1955???Age:68 Y???Sex:Male Jesse e:03/04/2024 Address:[address] [place] [address] , [address] Pcp:Bob Ferrell MD Subjective: * Chief Complaints: * ???1. Screening,hx polyps. * Medical History:? Objective: * Vitals:? Assessment: * Assessment: 1.?Encounter for screening c olonoscopy - Z12.11 (Primary)???2.?Colon polyps - K63.5???3.?Diverticulosis of large intestine without perforation or abscess without bleeding - K57.30???4.?Internal hemorrhoids - K64.8??? Plan: * Treatment: * Procedure Codes:?71968 COLON OSCOPY AND BIOPSY, Modifiers: PT , [...] MD Date:? 024 Generated for Phoebe medina/Tiffanie/Aurelianosmitting on:?01/26/2025 10:31 AM EDT
--- OUTSIDE RECORDS SUMMARY | 2025-01-26 10:31 | XMS_ITS ---
Author Organization [facility] Address [address] [place] [address] Care Team Providers Care Cone Cleaner Name Role Phone Mariaelena JASON, Bob Primary Care Provider Dwaine Churchill Unavailable [phone] Allergies No Known Allergies REASON FOR VISIT [...] Problem Status W/U Status Risk Notes Problem 272340039 Colon cancer screening (Z12.11) Active confirmed Problem 460396140 History of adenomatous polyp of colon (Z86.010) Active confirmed Problem 252880512800817 Preprocedural examination (Z01.818) Active confirmed Vital Signs Temperature 97.8 degrees Fahrenheit 12/01/19 24 Blood pressure systolic 00 mm Hg 12/01/19 24 Blood pressure diastolic 00 mm Hg 024 Height 71.25 in 12/01/2023 Weight 195 lbs 12/01/2023 BMI 27.00 kg/m2 12/01/2023 Encounters Encounter Location Date Provider Diagnosis [facility] [address] [place] [address] 12/01/2023 Dwaine Delgado Colon cancer screeni ng [...] * MIREILLE FRANCISCODOB:1955 ([age] yo M)Acc No.[id number]:12/01/2023 Progress Notes Patient:?MIREILLE FRANCISCO Provider:?Dwaine Delgado MD :1955???Age:68 Y???Sex:Male Jesse e:12/01/2023 Address:[address] [place] [address] Pcp:Bob Ferrell MD Subjective: * Chief Complaints: [...] year??Never (0 point),?Points?0,?Interpretation?Negative.?Miscellaneous:?Marital status: single. 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 ???Smoker; occasional alcohol. * [...] Procedure Codes:?3017F COLOR ECTAL CA SCREEN DOC [id number] Pt scrn tbco and id as [id number] BP SCR NOT PRFRM REC REASON NOS * Preventive Medicine:? ??Counseling:?Care goal follow-up plan:?Above Normal BMI Follow-up?Giving encouragement to exercise,?BMI management provided?Yes.? * Follow Up:?prn * * Sign off status: Completed true * Provider:?Dwaine Delgado MD Date:? 024 Generated for Phoebe medina/Tiffanie/eTransmitting on:?01/26/2025 10:31 AM EDT History and Physical Notes * [...]
--- OUTSIDE RECORDS SUMMARY | 2025-01-26 10:31 | XMS_ITS ---
Author Organization [facility] Address [address] [place] [address] Care Team Providers Care Baker Doughnut Name Role Phone Mariaelena JASON, Bob Primary Care Provider Dwaine Churchill [facility] [phone] REASON FOR VISIT Patient presents today for a COLON SCREENING Encounters Encounter Location Date Provider Diagnosis [facility] [address] [place] [phone] 11/20/2023 Dwaine Delgado Plan Of Treatment No Information Progress Notes * MIREILLE FRANCISCODOB:1955 ([age] yo M)Acc No.[id number]:11/20/2023 Progress Notes Patient:?MIREILLE FRANCISCO Provider:?Dwaine Delgado MD :1955???Age:68 Y???Sex:Male Jesse e:11/20/2023 Address:[address] [place] [address] , [address], [place], [place] Pcp:Bob Ferrell MD Subjective: * Chief Complaints: [...] MD Date:? 024 Generated for Phoebe medina/Tiffanie/Hussain on:?01/26/2025 10:30 AM EDT
--- OUTSIDE RECORDS SUMMARY | 2025-01-26 10:31 | XMS_ITS | Clinical Summary ---
Author Organization [facility] Address [address] [facility] [place] [address] Care Team Providers Care System Consultant Name Role Phone Bob Ferrell MD Primary [...] Adults 18 yrs or above (or HM Modifier)([facility]) 1973 Hepatitis C Virus Infection in Adolescents and Adults: Screening (or Modifier) ([facility]) 1973 SDOH Screening Reminder: [place] bloom for all adults ([facility]) 1973 Tobacco Smoking Cessation: i n Adults excluding Women: Behavioral and Pharmacotherapy Interventions ([facility]) 1973 DTaP/Tdap/Td Vaccines ([facility]) (1 - Tdap) 1974 Lipid Screening: Every 5 yrs for Men aged 35+ (or HM Modifier) ([facility]) 1991 Colorectal Cancer Screening 45 -75 Yrs (or HM Modifier) 2000 Colorectal Cancer: FLEXIBLE SIGMOIDOSCOPY Screening every 5 yrs 2000 Colorectal Cancer: Fecal Imm unochemical Test (FIT) Annually [facility] 2000 Colorectal Cancer: High-sens itivity gFOBT Screening Annually [facility] 2000 Colorectal Cancer: Stool Col oguard Screening every 3 yrs 2000 Colorectal Cancer:CT Colonog mitra Screening every 5 yrs 2000 Pneumococcal Vaccination Scr eening: Patients 50+ yrs of age ([facility]) (1 of 1 - PCV) 2005 Zoster/Shingles Vaccine Seri es Screening: Adults aged 18+ yrs (or HM Modifiers)([facility]) (1 of 2) 2005 Flu Vaccination: Ages 65+: Y early High Dose Recommended (or Modifier)([facility]) 05/26/2024 10/25/2020 COVID-19 Vaccine Screening: Initial Series and Booster Status ([facility]) (2023- season) 2024 RSV Vaccines (1 - 1-dose 75+ series) 2030 Medical Devices Not on file Care Teams System Consultant Relationship Specialty Start Date End Date Bob Ferrell MD [address] [place] [address] [place] [phone] PCP - General Internal Medicine 10/25/20
== END 2025-01-26 10:33 | disposition home or self-care (01) ==
LOC: HO.HMCH 09:52
PROVIDERS: PCP Internal Medicine
DX: M48.062 Spinal stenosis, lumbar region with neurogenic claudication (principal)

== ENCOUNTER → 2025-01-26 09:51 | Outpatient (BNVA) | payer MEDICARE, SELFPAY | PROVIDERS: PCP Internal Medicine | DX: M48.062 Spinal stenosis, lumbar region with neurogenic claudication (principal); Z98.890 Other specified postprocedural states | CPT/HCPCS: 99212 ==

== ENCOUNTER 2025-02-08 10:47 | Outpatient (AMB) | payer MEDICARE, SELFPAY ==
--- NOTE | 2025-02-08 10:56 | HO.SPINEOV ---
Intake Visit Reasons: 1st post op Intake Note: Mr. Slade is here today for his 1st post op. Environmental Marketing Representative Required: No Allergies acetaminophen [From Tylenol] Adverse Reaction (Intermediate, Verified 01/26/25 20:33) stomach pain Assessment & Plan Assessment & Plan (1) Status post lumbar spine surgery for decompression of spinal cord: Code(s): Z98.890 - Other specified postprocedural states Category: Surgical Plan Operation: Right L4 Laminotomy, Partial facetectomy and foraminotomy Rod is a pleasant 69 year old man who comes in today for his 1st postoperative visit after having right-sided L4 laminotomy completed by Dr. Davis a few weeks ago. He reports that since his surgery his leg pain has completely resolved. He has essentially been back to regular activity with no significant restrictions or concerns since surgery. He is not taking any medication for pain, and he reports no concerns regarding the postoperative healing course. No new neurological deficits. The patient ambulates well and rises from a seated position without difficulty. His posterior incision site is closed and well healing. There is no need for continued routine follow up with oRd, he is doing very well since his surgery and may see us on an as-needed basis. Raul Davis MD,PhD [facility] [place] Coding Level of Care Code Global (00140) Diagnoses Status post lumbar spine surgery for decompression of spinal cord Z98.890
--- OUTSIDE RECORDS SUMMARY | 2025-02-08 12:49 | XMS_ITS ---
Author Organization [facility] Address [address] [place] [address] Care Team Providers Care Movie Critic Name Role Phone Bob Ferrell MD Primary Care Provider Unavaila Dwaine Pinto Unavailable [phone] REASON FOR VISIT screening,hx polyps Problems Problem Type SNOMED Code ICD Code Onset Dates Problem Status W/U Status Risk Notes Problem Diverticular disease of colon (101200823) Diverticulosis of large intestine without perforation or abscess without bleeding (K57.30) Active confirmed Encounters Encounter Location Date Provider Diagnosis [facility] [place] [address] [place], [place] [id number] 03/04/2024 Dwaine Delgado Encounter for scre ening [...] * MIREILLE FRANCISCODOB:1955 ([age] yo M)Acc No.[id number]:03/04/2024 COLON WITH MAC Patient:?MIREILLE FRANCISCO Provider:?Dwaine Delgado MD :1955???Age:68 Y???Sex:Male Jesse e:03/04/2024 Address:[address] [place] [address] , [address] Pcp:Bob Ferrell MD Subjective: * Chief Complaints: * ???1. Screening,hx polyps. * Medical History:? Objective: * Vitals:? Assessment: * Assessment: 1.?Encounter for screening c olonoscopy - Z12.11 (Primary)???2.?Colon polyps - K63.5???3.?Diverticulosis of large intestine without perforation or abscess without bleeding - K57.30???4.?Internal hemorrhoids - K64.8??? Plan: * Treatment: * Procedure Codes:?57172 COLON OSCOPY AND BIOPSY, Modifiers: PT , [...] MD Date:? 024 Generated for Phoebe medina/Tiffanie/Aurelianosmitting on:?02/08/2025 12:49 PM EDT
--- OUTSIDE RECORDS SUMMARY | 2025-02-08 12:49 | XMS_ITS | Patient Health Record ---
Author Organization [facility] Address [address] [place] [phone] Care Team Providers Care Advertising Specialist Name Role Phone Mariaelena JASON, Bob Primary Care Provider Dwaine Churchill Unavailable [phone] Allergies No Known Allergies Results Component Value Reference Range Notes Pathology (Not yet reviewed by provider) Interpretation: Performing Lab:[facility], [address] [place] [phone] Notes/Report: Name: Mireille Slade ge/Sex: 68/M : 1955 Unit#: [id number] Attend Dr: Dwaine Delgado Re03/04/24 Status : [facility] Location: [facility] Disch: SPEC : [id number] RECD : 03/04/24-114 STATUS: TIM FELIZ NUM: [id number] VALERIANO: 03/04/24-1050 [facility] DR: Dwaine Delgado ENTERED: 03/04/24- 06 SP [...] Bob Ferrell MD [address] [place] [address] Dwaine Delgado [address] [place] [address] [address] [place] [address] Signed (si gnature on file) Julissa Reinoso [...] Problem Status W/U Status Risk Notes Problem 980245552 Colon cancer screening (Z12.11) Active confirmed Problem 734606047 History of adenomatous polyp of colon (Z86.010) Active confirmed Problem Diverticular disease of colon (649363570) Diverticulosis of large intestine without perforation or abscess without bleeding (K57.30) Active confirmed Problem 887402416376929 Preprocedural examination (Z01.818) Active confirmed Encounters Encounter Location Date Provider Diagnosis [facility] Outpatient [address] [place] [phone] 03/04/2024 Dwaine Delgado Encounter for scre ening [...] Coverage End Date [facility] [address] [place] [address] [phone] [id number] MIREILLE SLADE Self - patient is the insured Medical (General) History Medical History History ICD Code Denies WI,DM,CVA,renal disease Told of emphysema on a scree wilma chest CT, but not on any medication nor inhalers Anxiety Screening colonoscopy in 201 2 revealed small tubular adenomas that were removed Surgical History Surgery Date(Month/Year) cholecystectomy 2022 broken leg surgery 2016
--- OUTSIDE RECORDS SUMMARY | 2025-02-08 12:49 | XMS_ITS ---
Author Organization [facility] Address [address] [place] [phone] Care Team Providers Care Chronic Disease Manager Name Role Phone Mariaelena JASON, Bob Primary Care Provider Dwaine Churchill [facility] [phone] REASON FOR VISIT Patient presents today for a COLON SCREENING Encounters Encounter Location Date Provider Diagnosis [facility] [address] [place] [phone] 11/20/2023 Dwaine Delgado Plan Of Treatment No Information Progress Notes * MIREILLE FRANCISCODOB:1955 ([age] yo M)Acc No.[id number]:11/20/2023 Progress Notes Patient:?MIREILLE FRANCISCO Provider:?Dwaine Delgado MD :1955???Age:68 Y???Sex:Male Jesse e:11/20/2023 Address:[address] [place] [address] , [address], [place], [place] Pcp:Bob Ferrell MD Subjective: * Chief Complaints: [...] MD Date:? 024 Generated for Phoebe medina/Tiffanie/Hussain on:?02/08/2025 12:48 PM EDT
--- OUTSIDE RECORDS SUMMARY | 2025-02-08 12:49 | XMS_ITS ---
Author Organization [facility] Address [address] [place] [phone] Care Team Providers Care Financial Reporting Specialist Name Role Phone Mariaelena JASON, Bob Primary Care Provider Dwaine Churchill Unavailable [phone] Allergies No Known Allergies REASON FOR VISIT [...] Problem Status W/U Status Risk Notes Problem 696758877 Colon cancer screening (Z12.11) Active confirmed Problem 432890539 History of adenomatous polyp of colon (Z86.010) Active confirmed Problem 316462680249195 Preprocedural examination (Z01.818) Active confirmed Vital Signs Temperature 97.8 degrees Fahrenheit 12/01/19 24 Blood pressure systolic 00 mm Hg 12/01/19 24 Blood pressure diastolic 00 mm Hg 024 Height 71.25 in 12/01/2023 Weight 195 lbs 12/01/2023 BMI 27.00 kg/m2 12/01/2023 Encounters Encounter Location Date Provider Diagnosis [facility] [address] [place] [address] 12/01/2023 Dwaine Delgado Colon cancer screeni ng [...] * MIREILLE FRANCISCODOB:1955 ([age] yo M)Acc No.[id number]:12/01/2023 Progress Notes Patient:?MIREILLE FRANCISCO Provider:?Dwaine Delgado MD :1955???Age:68 Y???Sex:Male Jesse e:12/01/2023 Address:[address] [place] [address] Pcp:Bob Ferrell MD Subjective: * Chief Complaints: [...] year??Never (0 point),?Points?0,?Interpretation?Negative.?Miscellaneous:?Marital status: single. 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 ???Smoker; occasional alcohol. * [...] Procedure Codes:?3017F COLOR ECTAL CA SCREEN DOC [id number] Pt scrn tbco and id as [id number] BP SCR NOT PRFRM REC REASON NOS * Preventive Medicine:? ??Counseling:?Care goal follow-up plan:?Above Normal BMI Follow-up?Giving encouragement to exercise,?BMI management provided?Yes.? * Follow Up:?prn * * Sign off status: Completed true * Provider:?wDaine Delgado MD Date:? 024 Generated for Phoebe medina/Tiffanie/eTransmitting on:?02/08/2025 12:49 PM EDT History and Physical Notes * HPI [...]
--- OUTSIDE RECORDS SUMMARY | 2025-02-08 12:49 | XMS_ITS | Clinical Summary ---
Author Organization [facility] [employer] Address [address] [facility] [place] [address] Care Team Providers Care Parts Lister Name Role Phone Bob Ferrell MD Primary [...] Adults 18 yrs or above (or HM Modifier)([facility]) 1973 Hepatitis C Virus Infection in Adolescents and Adults: Screening (or Modifier) ([facility]) 1973 SDOH Screening Reminder: Almita bloom for all adults ([facility]) 1973 Tobacco Smoking Cessation: i n Adults excluding Women: Behavioral and Pharmacotherapy Interventions ([facility]) 1973 DTaP/Tdap/Td Vaccines ([facility]) (1 - Tdap) 1974 Lipid Screening: Every 5 yrs for Men aged 35+ (or HM Modifier) ([facility]) 1991 Colorectal Cancer Screening 45 -75 Yrs (or HM Modifier) 2000 Colorectal Cancer: FLEXIBLE SIGMOIDOSCOPY Screening every 5 yrs 2000 Colorectal Cancer: Fecal Imm unochemical Test (FIT) Annually [facility] 2000 Colorectal Cancer: High-sens itivity gFOBT Screening Annually [facility] 2000 Colorectal Cancer: Stool Col oguard Screening every 3 yrs 2000 Colorectal Cancer:CT Colonog mitra Screening every 5 yrs 2000 Pneumococcal Vaccination Scr eening: Patients 50+ yrs of age ([facility]) (1 of 1 - PCV) 2005 Zoster/Shingles Vaccine Seri es Screening: Adults aged 18+ yrs (or HM Modifiers)([facility]) (1 of 2) 2005 Flu Vaccination: Ages 65+: Y early High Dose Recommended (or Modifier)([facility]) 05/26/2024 10/25/2020 COVID-19 Vaccine Screening: Initial Series and Booster Status ([facility]) (2023- season) 2024 RSV Vaccines (1 - 1-dose 75+ series) 2030 Medical Devices Not on file Care Teams Parts Lister Relationship Specialty Start Date End Date Bob Ferrell MD [address] [place] [address] [place] [address] PCP - General Internal Medicine 10/25/20
== END 2025-02-08 11:02 | disposition home or self-care (01) ==
LOC: HO.HNS 10:48
PROVIDERS: PCP Internal Medicine; Visit Provider Physician Assistant
DX: Z98.890 Other specified postprocedural states (principal)
CPT/HCPCS: 99024

== ENCOUNTER → 2025-02-08 10:47 | Outpatient (BNVA) | payer MEDICARE, SELFPAY | PROVIDERS: PCP Internal Medicine; Visit Provider Physician Assistant | DX: Z48.89 Encounter for other specified surgical aftercare (principal); Z98.890 Other specified postprocedural states | CPT/HCPCS: 99212 ==

== ENCOUNTER 2025-05-08 14:52 | Outpatient (AMB) | payer MEDICARE, SELFPAY ==
[2025-05-08 14:58] VITALS: BP 128/76; PULSE 64; O2SAT 97; BMI 28.0
--- NOTE | 2025-05-08 14:58 | A.OFFPC_ITS ---
Vital Signs 05/08/25 14:58 Height 5 ft 11 in Weight 201 lb BMI 28.0 BP 128/76 Blood Pressure Location Lt brachial Position Sitting Pulse 64 Pulse Source Pulse Oximeter Pulse Oximetry (%) 97 Oxygen Delivery Method Room Air Intake Visit Reasons: annual exam/elizabeth DR Ferrell Intake Note: Patient here for a physical exam Lead Worker Of Housekeeping And Laundry Required: No Accompanied by: Self / Same As Patient Allergies acetaminophen (From Tylenol) Adverse Reaction (Intermediate, Verified 05/08/25 15:24) stomach pain Medication List - Last Reconciled 05/08/25 by Prabhakar Sullivan MD clonazepam 0.5 mg PO DAILY PRN multivitamin 1 tab PO DAILY triazolam 0.25 mg PO BEDTIME PRN Tobacco use date assessed: 01/26/25 Fall risk assessment: No Falls in past year Last assessed Fall Risk: 05/08/25 Dental Screening Dental Screen Date: 01/26/25 HPI annual exam/elizabeth DR Ferrell HPI Details Patient comes in today for his annual physical examination - is transferring over from Dr. Ferrell, who retired from the practice a few months ago States that he feels okay He denies any headaches or dizziness Denies any chest pains, no SOB No nausea/vomiting, no abdominal pain No change in bowel habits noted Denies any acute urinary symptoms He continues to struggle with sleeping at night He has taken Zolpidem in the past but states that it does not help much He has also tried Trazodone and Doxepin in the past but could not tolerate these due to side effects He had his screening colonoscopy last done with Dr. Delgado last year on 03/04/2024 - (+) tubular adenoma and he was recommended for a repeat colonoscopy in 5 years (2029) [facility] Medical History (Updated 05/15/25 @ 03:24 by Prabhakar Sullivan MD) Overweight (BMI 25.0-29.9) Smoker Arthritis Fatty liver Habitual snoring Emphysema of lung Nicotine dependence, cigarettes, uncomplicated Tubular adenoma of colon (~2011) Anxiety Surgical History (Updated 05/08/25 @ 15:27 by Prabhakar Sullivan MD) H/O lumbosacral spine surgery Hx of right cataract extraction History of umbilical hernia repair History of cholecystectomy History of surgery on lower extremity History of colonoscopy History of tonsillectomy Family History Father Cardiac muscle disease Mother Lung cancer Son Colon cancer Family/Other Mental health disorder Substance use disorder Social History Housing: House Are you a primary resident caregiver to a significant other at home: No Do you presently have visiting nurse or other home services: No Alcohol intake: current Alcohol intake frequency: a few times a week Patient Tobacco Use Status: Current everyday Tobacco user Tobacco use type: Cigarette Cigarette Packs Per Day: 0.5 Years Smoked: (current smoker, 1ppd x 53yrs, now 1/2ppd - 50pyh) e-Cigarette/Vaping Use: Never Used Second Hand Smoke Exposure: Yes service: No Current occupational status: retired Current occupation: right hand Cognitive needs: No Hearing needs: No Vision needs: Yes (Glasses) Questionnaire PHQ-9 Over the last 2 weeks, how often have you been bothered by any of the following problems? 1. Little interest or pleasure in doing things: not at all 2. Feeling down, depressed, or hopeless: not at all 3. Trouble falling or staying asleep, or sleeping too much: nearly every day 4. Feeling tired or having little energy: several days 5. Poor appetite or overeating: several days 6. Feeling bad about yourself - or that you are a failure or have let yourself or your family down: several days 7. Trouble concentrating on things, such as reading the newspaper or watching television: not at all 8. Moving or speaking so slowly that other people could have noticed. Or the opposite - being so fidgety or restless that you have been moving around a lot m ore than usual: not at all 9. Thoughts that you would be better off or of hurting yourself in some way: not at all Total score: 6 Depression Screening Interpretation: Positive Depression Screening Follow-up: Follow-up Visit Requested Depression Screening Done: Yes 28884 - PHQ-9 Billing: Yes Source: Developed by Drs. Dwaine Sorensen, Janene Guzman, Sotero Ambrose and colleagues, with an educational nikolas from [employer]. Thrive Questionnaire Date Thrive assessed: 05/01/25 I am a: Patient What is your living situation today?: I have a steady place to live Within the past 12 months, did the food you bought not last and you didn't have the money to get more?: Never true Within the past 12 months, did you worry whether your food would run out before you got money to buy more?: Never true Do you have trouble paying for medicines?: No Do you have trouble getting transportation to medical appointments?: No Do you have trouble paying your heating and electricity bill?: No Do you have trouble taking care of your child, family member or friend?: No Do you have trouble with day-to-day activities such as bathing, preparing meals, shopping, managing finances, etc.?: No Are you currently unemployed and looking for a job?: No Are you interested in more education?: No Please select the resources that you would like help with: None Currently or been in a relationship where the following occur: No concerns reported THRIVE Score: 0 AUDIT C Alcohol Use Questionnaire (AUDIT-C) 1. How often do you have a drink containing alcohol?: 2-4 times a month Total Score: 2 Score Reviewed/Action Taken: Yes JIMMY-7 AMB Questionnaire JIMMY-7 Date JIMMY - 7 assessed: 05/08/25 Feeling nervous, anxious, or on edge: 3 = Nearly every day Not being able to stop or control worryin = More than half the days Worrying too much about different things: 3 = Nearly every day Trouble relaxin = More than half the days Being so restless that it is hard to sit still: 0 = Not at all Becoming easily annoyed or irritable: 0 = Not at all Feeling afraid as if something awful might happen: 1 = Several days Total JIMMY-7 score (0-4 normal; 5-9 mild; 10-14 moderate; 15-21 severe): 11 Source: Developed by Drs. Dwaine Sorensen, Janene Guzman, Sotero Ambrose and colleagues, with an educational nikolas from [employer]. Review of Systems Const Denies chills, Reports difficulty sleeping, Denies fatigue, Denies fever(s), Denies headache(s), Denies malaise and Denies weakness Eyes Denies blurry vision, Denies change in vision, Denies irritation and Denies itchy eyes ENT Denies dysphagia, Denies dizziness, Denies otalgia, Denies headache(s), Denies nasal congestion, Denies neck pain, Denies odynophagia and Denies sore throat Card Denies chest pain, Denies rapid heart rate, Denies irregular heart rhythm, Denies palpitations and Denies dyspnea Resp Denies chest congestion, Denies cough, Denies dyspnea and Denies wheezing GI Denies abdominal pain, Denies bloating, Denies constipation, Denies dysphagia, Denies heartburn, Denies diarrhea, Denies nausea, Denies odynophagia and Denies vomiting Denies hematuria, Denies difficulty urinating, Denies dysuria, Denies urinary frequency and Denies urinary urgency Musc Denies back pain, Denies arthralgias, Denies joint swelling, Denies muscle weakness and Denies neck pain Skin/Breast Denies change in pigmentation, Denies lesions, Denies rash and Denies unusual bruising Neuro Denies dizziness, Denies headache(s), Denies paresthesias and Denies weakness Endo Denies fatigue and Denies palpitations Aller/Immun Denies itchy eyes and Denies wheezing Physical exam (Primary Care) Vital Signs: Last Vital Signs Pulse 64 05/08/25 14:58 BP 128/76 05/08/25 14:58 Pulse Ox 97 05/08/25 14:58 Oxygen Delivery Method Room Air 05/08/25 14:58 BMI result Body Mass Index 28.0 Tobacco/Smoking Status: Tobacco use Status Tobacco use date assessed 01/26/25 05/08/25 15:02 Patient Tobacco Use Status Current everyday Tobacco 05/08/25 15:02 Tobacco use type Cigarette 05/08/25 15:02 e-Cigarette/Vaping Use Never Used 05/08/25 15:02 PHQ-9: PHQ-9 Score PHQ-9: Total score 6 05/08/25 15:45 Depression Screening Interpretation: Positive Depression Screening Follow-up: Follow-up Visit Requested Thrive Assessment: Date of Thrive Assessment Date Thrive assessed 05/01/25 05/08/25 15:02 Currently or been in a relationship where the following occur: No concerns reported Const General: no acute distress, alert and awake Orientation/consciousness: patient oriented x3 HENMT Head: Yes normocephalic and Yes atraumatic Ears: external ears normal, TM's normal bilaterally and EAC's normal General nose exam: No nasal discharge present Face and sinus: Yes normal facial exam and Yes sinuses nontender Teeth and gingiva: dentition normal Throat: Yes posterior oropharynx normal and Yes tonsils normal (no TP congestion) Eyes Eyelids: Yes eyelids normal Conjunctivae: conjunctivae normal Pupils: Equal, round and reactive pupils present EOM: EOMs intact bilaterally Neck Neck: Yes no lymphadenopathy and Yes supple Thyroid: Thyroid normal Resp Auscultation: clear to auscultation bilaterally, no rales and no wheezes Cardio Rate: regular rate Rhythm: regular rhythm Heart sounds: no murmurs GI Palpation (GI): Soft to palpation, nontender and No hepatosplenomegaly present Auscultation: normal bowel sounds General: Yes no CVA tenderness Back/Spine/Pelvis Back: no CVA tenderness Thoracic/Lumbar Spine: lumbar spinal tenderness (mild) Skin Lesions: no lesions Rashes: no rashes Neuro General: patient oriented x3, moves all extremities, no focal motor deficits and CN's II-XI intact bilaterally Cranial nerves: Yes Equal, round and reactive pupils present Cognition (Neuro): normal cognition Gait exam (Neuro): Normal gait present Extrem General: Yes no clubbing, cyanosis or edema Coding Level of Care Code Est Pt Prev Care >65y(45704) Diagnoses Annual physical exam Z00.00 Lumbar spondylosis M47.816 Insomnia, unspecified type G47.00 Insomnia type: unspecified Anxiety F41.9 Smoker F17.200 Overweight (BMI 25.0-29.9) E66.3 Additional Codes PHQ-9 - 96740 - PHQ-9 Billing: Yes ([id number]) Assessment & Plan Assessment & Plan (1) Annual physical exam: Code(s): Z00.00 - Encounter for general adult medical examination without abnormal findings Category: Medical Plan: Check labs He had his screening colonoscopy last done with Dr. Delgado last year on 03/04/2024 - (+) tubular adenoma and he was recommended for a repeat colonoscopy in 5 years (2029) (2) Lumbar spondylosis: Code(s): M47.816 - Spondylosis without myelopathy or radiculopathy, lumbar region Category: Medical Plan: S/P lumbar spine decompression in the past Reinforced activity and weight lifting restrictions to minimize aggravating his low back pain (3) Insomnia: Code(s): G47.00 - Insomnia, unspecified Category: Medical Qualifiers: Insomnia type: unspecified Qualified Code(s): G47.00 - Insomnia, unspecified Plan: Sleep hygiene reinforced Patient states that he has tried Trazodone in the past but it was ineffective He is currently on Zolpidem 10 mg Q HS PRN but he states that it has not been helping as much as it did before Was recently prescribed Triazolam 0.25 mg Q HS but states that his insurance would not approve the Rx (4) Anxiety: Code(s): F41.9 - Anxiety disorder, unspecified Category: Medical Plan: Continue Clonazepam 0.5 mg QD PRN (5) Smoker: Code(s): F17.200 - Nicotine dependence, unspecified, uncomplicated Category: Social Hx Plan: Patient is counseled on complete smoking cessation (6) Overweight (BMI 25.0-29.9): Code(s): E66.3 - Overweight Category: Medical Plan: Reinforced diet/exercise as tolerated/lose weight Plan Follow up in 6 months Orders: Orders UA CC w/rflx Micro + Cult 05/08/25 R30.0 - Dysuria, Z00.00 - Encounter for general adult medical examination without abnormal findings Vitamin D 25-OH Total 05/08/25 E55.9 - Vitamin D deficiency, unspecified, Z00.00 - Encounter for general adult medical examination without abnormal findings Vitamin B12 and Folate 05/08/25 E53.8 - Deficiency of other specified B group vitamins, Z00.00 - Encounter for general adult medical examination without abnormal findings Prostate Specific Antigen 05/08/25 N40.0 - Benign prostatic hyperplasia without lower urinary tract symptoms, Z00.00 - Encounter for general adult medical examination without abnormal findings Complete Blood Count Auto Diff 05/08/25 D64.9 - Anemia, unspecified, Z00.00 - Encounter for general adult medical examination without abnormal findings Lipid Panel 05/08/25 E78.00 - Pure hypercholesterolemia, unspecified, Z00.00 - Encounter for general adult medical examination without abnormal findings Comprehensive [place]. Panel Fast 05/08/25 E78.00 - Pure hypercholesterolemia, unspecified, Z00.00 - Encounter for general adult medical examination without abnormal findings TSH reflex Free T4 05/08/25 E78.00 - Pure hypercholesterolemia, unspecified, Z00.00 - Encounter for general adult medical examination without abnormal findings Medications: Refilled zolpidem (Ambien) 10 mg PO BEDTIME PRN 30 tabs 0RF sleep
--- OUTSIDE RECORDS SUMMARY | 2025-05-08 16:08 | XMS_ITS | Clinical Summary ---
Author Organization [facility] [employer] [facility] lin Address [address] [facility] [place] [address] Care Team Providers Care Party Bus Driver Name Role Phone Bob Ferrell MD Primary [...] Adults 18 yrs or above (or HM Modifier)([facility]) 1973 Hepatitis C Virus Infection in Adolescents and Adults: Screening (or Modifier) ([facility]) 1973 [facility] Screening Reminder: Almita bloom for all adults ([facility]) 1973 Tobacco Smoking Cessation: i n Adults excluding Women: Behavioral and Pharmacotherapy Interventions ([facility]) 1973 DTaP/Tdap/Td Vaccines ([facility]) (1 - Tdap) 1974 Colorectal Cancer Screening 45 -75 Yrs (or HM Modifier) 2000 Colorectal Cancer: FLEXIBLE SIGMOIDOSCOPY Screening every 5 yrs 2000 Colorectal Cancer: Fecal Imm unochemical Test (FIT) Annually [facility] 2000 Colorectal Cancer: High-sens itivity gFOBT Screening Annually [facility] 2000 Colorectal Cancer: Stool Col oguard Screening every 3 yrs 2000 Colorectal Cancer:CT Colonog mitra Screening every 5 yrs 2000 Pneumococcal Vaccination Scr eening: Patients 50+ yrs of age ([facility]) (1 of 1 - PCV) 2005 Zoster/Shingles Vaccine Seri es Screening: Adults aged 18+ yrs (or HM Modifiers)([facility]) (1 of 2) 2005 COVID-19 Vaccine Screening: Initial Series and Booster Status ([facility]) ( - 2023- season) 2024 Flu Vaccination: Ages 65+: Y early High Dose Recommended (or Modifier)([facility]) 05/26/2025 10/25/2020 RSV Vaccines (1 - 1-dose 75+ series) 2030 [employer] Not on file Care Teams Party Bus Driver Relationship Specialty Start Date End Date Bob Ferrell MD [address] [place] [address] [place] [phone] PCP - General Internal Medicine 10/25/20
--- OUTSIDE RECORDS SUMMARY | 2025-05-08 16:08 | XMS_ITS | Patient Health Record ---
Author Organization [facility] Address [address] [place] [id number] Care Team Providers Care Meteorology Professor Name Role Phone Mariaelena JASON, Bob Primary Care Provider Dwaine Churchill Unavailable [phone] Allergies No Known Allergies Reason For Referral No Information Medications Medication [...] Problem Status W/U Status Risk Notes Problem [id number] Colon cancer screening (Z12.11) Active confirmed Problem 014311605 History of adenomatous polyp of colon (Z86.010) Active confirmed Problem Diverticulosis o f large intestine without perforation or abscess without bleeding (K57.30) Active confirmed Problem 396973852611306 Preprocedural examination (Z01.818) Active confirmed Plan Of Treatment Pending Test Test Name Order Date Pathology 03/04/2024 Future Test Test Name Order Date COLONOSCOPY 07/20/2012 COLONOSCOPY 12/01/2023 Insurance Providers Payer Name Payer Address Payer Phone Subscriber Number Group Number Insured Name Patient Relationship to Insured Coverage Start Date Coverage End Date [facility] [address] [place] [address] [phone] [id number] MIREILLE FRANCISCO Self - patient is the insured Medical (General) History Medical History History ICD Code Denies [place],DM,CVA,renal disease Told of emphysema on a scree wilma chest CT, but not on any medication nor inhalers Anxiety Screening colonoscopy in 201 2 revealed small tubular adenomas that were removed Surgical History Surgery Date(Month/Year) cholecystectomy 2022 broken leg surgery 2016
== END 2025-05-08 15:54 | disposition home or self-care (01) ==
LOC: HO.HMCH 14:53
PROVIDERS: PCP Internal Medicine; Visit Provider Internal Medicine
DX: Z00.00 Encounter for general adult medical examination without abnormal findings (principal); M47.816 Spondylosis without myelopathy or radiculopathy, lumbar region; G47.00 Insomnia, unspecified; F41.9 Anxiety disorder, unspecified; F17.200 Nicotine dependence, unspecified, uncomplicated; E66.3 Overweight

== ENCOUNTER → 2025-05-08 14:52 | Outpatient (BNVA) | payer MEDICARE, SELFPAY | PROVIDERS: PCP Internal Medicine; Visit Provider Internal Medicine | DX: Z00.00 Encounter for general adult medical examination without abnormal findings (principal); M47.816 Spondylosis without myelopathy or radiculopathy, lumbar region; G47.00 Insomnia, unspecified; F41.9 Anxiety disorder, unspecified; E66.3 Overweight; Z68.28 Body mass index [BMI] 28.0-28.9, adult; F17.210 Nicotine dependence, cigarettes, uncomplicated; Z79.899 Other long term (current) drug therapy; Z13.31 Encounter for screening for depression; Z13.39 Encounter for screening examination for other mental health and behavioral disorders | CPT/HCPCS: 96127; 99397 ==

== ENCOUNTER 2025-05-29 08:35 | Outpatient (REF) | payer MEDICARE, SELFPAY ==
[2025-05-29 08:53] LABS: MANUAL DIFF FLAG NO
--- OUTSIDE RECORDS SUMMARY | 2025-05-29 08:57 | XMS_ITS | Clinical Summary ---
Author Organization [facility] [employer] [facility] lin Address [address] [facility] [address] Care Team Providers Care Biology Teacher Name Role Phone Bob Ferrell MD Primary [...] Adults 18 yrs or above (or HM Modifier)([facility]) 1973 Hepatitis C Virus Infection in Adolescents and Adults: Screening (or Modifier) ([facility]) 1973 SDSD Screening Reminder: Almita bloom for all adults ([facility]) 1973 Tobacco Smoking Cessation: i n Adults excluding Women: Behavioral and Pharmacotherapy Interventions ([facility]) 1973 DTaP/Tdap/Td Vaccines ([facility]) (1 - Tdap) 1974 Colorectal Cancer Screening 45 -75 Yrs (or HM Modifier) 2000 Colorectal Cancer: FLEXIBLE SIGMOIDOSCOPY Screening every 5 yrs 2000 Colorectal Cancer: Fecal Imm unochemical Test (FIT) Annually [facility] 2000 Colorectal Cancer: High-sens itivity gFOBT Screening Annually [facility] 2000 Colorectal Cancer: Stool Col oguard Screening every 3 yrs 2000 Colorectal Cancer:CT Colonog mitra Screening every 5 yrs 2000 Pneumococcal Vaccination Scr eening: Patients 50+ yrs of age ([facility]) (1 of 1 - PCV) 2005 Zoster/Shingles Vaccine Seri es Screening: Adults aged 18+ yrs (or HM Modifiers)([facility]) (1 of 2) 2005 COVID-19 Vaccine Screening: Initial Series and Booster Status ([facility]) ( - 2023- season) 2024 Flu Vaccination: Ages 65+: Y early High Dose Recommended (or Modifier)([facility]) 05/26/2025 10/25/2020 RSV Vaccines (1 - 1-dose 75+ series) 2030 [employer] Not on file Care Teams Biology Teacher Relationship Specialty Start Date End Date Bob Ferrell MD [address] [place] [address] [place] [phone] PCP - General Internal Medicine 10/25/20
--- OUTSIDE RECORDS SUMMARY | 2025-05-29 08:57 | XMS_ITS | Patient Health Record ---
Author Organization [facility] Address [address] [place] [id number] Care Team Providers Care Field Assessor Name Role Phone Mariaelena JASON, Bob Primary Care Provider Dwaine Churchill Unavailable [phone] Allergies No Known Allergies Reason For Referral No Information Medications Medication SIG (Take, Route, Fr equency, Duration) Notes Start Date End Date Status Triazolam 0.25 MG TAKE 1 TABLET BY IVKY TH EVERY DAY AT BEDTIME NEEDED FOR [...] Problem Status W/U Status Risk Notes Problem [id number] Colon cancer screening (Z12.11) Active confirmed Problem 314270688 History of adenomatous polyp of colon (Z86.010) Active confirmed Problem Diverticular disease of colon (834281746) Diverticulosis of large intestine without perforation or abscess without bleeding (K57.30) Active confirmed Problem 989092400331080 Preprocedural examination (Z01.818) Active confirmed Plan Of Treatment Pending Test Test Name Order Date Pathology 03/04/2024 Future Test Test Name Order Date COLONOSCOPY 07/20/2012 COLONOSCOPY 12/01/2023 Insurance Providers Payer Name Payer Address Payer Phone Subscriber Number Group Number Insured Name Patient Relationship to Insured Coverage Start Date Coverage End Date [facility] [address] [place] [address] [id number] MIREILLE FRANCISCO Self - patient is the insured Medical (General) History Medical History History ICD Code Denies [place],DM,CVA,renal disease Told of emphysema on a scree wilma chest CT, but not on any medication nor inhalers Anxiety Screening colonoscopy in 201 2 revealed small tubular adenomas that were removed Surgical History Surgery Date(Month/Year) cholecystectomy 2022 broken leg surgery 2016
[2025-05-29 09:07] LABS: Hematocrit 46.6 % (42.0-52.0); Hemoglobin 15.5 g/dl (14.0-18.0); Imm Gran Abs Auto 0.07 X10*3/uL (0.00-0.03); Imm Gran Pct Auto 0.7 % (0.0-0.4); Lymphocytes Absolute Auto 1.8 X10*3/uL (1.2-4.9); Mean Corpuscular HGB Conc 33.3 g/dl (31.0-36.0); Mean Corpuscular Hemoglobin 32.0 pg (27.0-33.0); Mean Corpuscular Volume 96.1 fL (80.0-98.0); NRBC Abs Auto 0.000 X10*3/uL (0.0-0.012); NRBC Pct Auto 0.0 /100WBC (0.0-0.2); Platelet Count 314 X10*3/uL (160-400); Red Blood Count 4.85 X10*6/uL (4.60-5.80); White Blood Count 10.6 X10*3/uL (4.8-10.8)
[2025-05-29 09:19] LABS: Appearance Urine Clear; Glucose Urine UA Negative (Negative); PH 6.5 (5.0-9.0); Specific Gravity - Urine 1.015 (1.005-1.025); UMIC TRIGGER UACC YES
[2025-05-29 09:59] LABS: Alanine Aminotransferase 27 U/L (0-40); Albumin Level 4.3 g/dL (3.5-5.0); Alkaline Phosphatase 67 U/L (39-117); Anion Gap 11 (12-20); Aspartate Amino Transferase 22 U/L (5-37); Blood Urea Nitrogen 12 mg/dL (9-16); Calcium 9.0 mg/dL (8.4-10.2); Carbon Dioxide 27 mmol/L (22-29); Chloride 107 mmol/L (96-108); Cholesterol 184 mg/dL (<200); Estimated Glomerular Filt Rate > 60; HDL Cholesterol 38 mg/dL (>40); Potassium 5.1 mmol/L (3.3-5.1); Sodium 140 mmol/L (135-145); Total Protein 7.3 g/dL (6.5-8.0); Triglycerides 91 mg/dL (<150)
[2025-05-29 10:21] LABS: Folate 10.3 ng/mL (> or = 4.0); Prostate Specific Antigen 2.86 ng/mL (<0.05-4.0); Vitamin B12 425 pg/mL (200-900)
== END 2025-05-29 08:36 | disposition home or self-care (01) ==
LOC: HO.LAB 08:35
PROVIDERS: PCP Internal Medicine; Visit Provider Internal Medicine
DX: Z00.00 Encounter for general adult medical examination without abnormal findings (principal); N40.0 Benign prostatic hyperplasia without lower urinary tract symptoms; D64.9 Anemia, unspecified; E78.00 Pure hypercholesterolemia, unspecified; E55.9 Vitamin D deficiency, unspecified; E53.8 Deficiency of other specified B group vitamins; Z12.5 Encounter for screening for malignant neoplasm of prostate
CPT/HCPCS: 36415; 80053; 80061; 81001; 82306; 82607; 82746; 84153; 84443; 85025

== ENCOUNTER 2025-08-23 09:53 | Outpatient (REF) | payer MEDICARE, SELFPAY ==
--- OUTSIDE RECORDS SUMMARY | 2024-03-04 05:30 | XMS_ITS ---
Author Organization [facility] Address [address] [place] [id number] Care Team Providers Care Data Storage Specialist Name Role Phone Bob Ferrell MD Primary Care Provider Unavaila Dwaine Pinto Unavailable [phone] REASON FOR VISIT screening,hx polyps Problems Problem Type SNOMED Code ICD Code Onset Dates Problem Status W/U Status Risk Notes Problem Diverticular disease of colon (402473355) Diverticulosis of large intestine without perforation or abscess without bleeding (K57.30) Active confirmed Encounters Encounter Location Date Provider Diagnosis [facility] [place] [facility] [address] [place] [id number] 03/04/2024 Dwaine Delgado Encounter for scre ening colonoscopy Z12.11 ; Colon polyps K63.5 ; Diverticulosis of large intestine without perforation or abscess without bleeding K57.30 and Internal hemorrhoids K64.8 Assessments Encounter Date Diagnosis (ICD Code) Assessment Notes Treatment Notes Treatment Clinical Notes Section Notes 03/04/2024 Encounter for screening colonoscopy (ICD-10 - Z12.11) 03/04/2024 Colon polyps (ICD-10 - K63.5) 03/04/2024 Diverticulosis of large intestine without perforation or abscess without bleeding (ICD-10 - K57.30) 03/04/2024 Internal hemorrhoids (ICD-10 - K64.8) Plan Of Treatment No Information Progress Notes * MIREILLE FRANCISCODOB:1955 (7 0 yo M)Acc No.[id number]:03/04/2024 COLON WITH MAC Patient: MIREILLE SCHMITT Provider: Yogesh Delgado MD :1955 A ge:68 Y S ex:Male Date:03/04/2024 Address:[address] [place], [place] [phone] Pcp:Bob Ferrell MD Subjective: * Chief Complaints: * 1 . Screening,hx polyps. * Medical History: Objective: * Vitals: Assessment: * Assessment: 1. E ncounter for screening colonoscopy - Z12.11 (Primary) 2 . C olon polyps - K63.5 3 . D iverticulosis of large intestine without perforation or abscess without bleeding - K57.30 4 . I nternal hemorrhoids - K64.8 Plan: * Treatment: * Procedure Codes: 4 5380 COLONOSCOPY AND BIOPSY, Modifiers: PT , 0529F INTRVL 3+YRS PTS CLNSCP DOCD, Modifiers: 8P , 0528F RCMND FLW-UP 10 YRS DOCD, Modifiers: 1P * * The named appointment provid er may or may not be the originator of this progress note, and it is not deemed complete until electronically signed by the appointment provider. Sign off status: Pending * Provider: Yogesh Delgado MD Date: 0 03/04/2024 Generated for Phoebe medina/Tiffanie/Yesseniaitting on: 11:56 AM EDT
--- NOTE | ~2025-08-23 | CT_ITS ---
EXAMINATION: CT LUNG SCREENING HISTORY: F17.210 - Nicotine dependence, cigarettes, uncomplicated TECHNIQUE: Low dose axial images were obtained from the sternal notch to upper abdomen without IV contrast per standard departmental protocol. Sagittal and coronal reformatted images were also obtained and reviewed. One or more of the following techniques was used for dose reduction: Automated exposure control, adjustment of the mA and/or kV according to patient size, use of iterative reconstruction technique. DLP: 71 mGy-cm COMPARISON: Previous chest CT scans from March 2023 and June 2024 FINDINGS: Lung nodules: 6 mm peripheral or subpleural medial right upper lobe nodule adjacent to the mediastinum axial image 37 series 5. In retrospect this is similar to prior exams going back to March 2023. Mild increased groundglass attenuation in the right upper lobe adjacent to the major fissure measuring 12 mm axial image 87 series 5. This is stable. No new or enlarging pulmonary nodule. Central airways are clear. Mild to moderate paraseptal and centrilobular emphysema. Mild biapical pleural and parenchymal scarring. Coronary Calcification: mild Aortic Arch Calcification: moderate Potentially Significant Incidentals : none Additional Chest Findings: There is no pleural or pericardial effusion. No mediastinal or axillary lymphadenopathy is identified. Visualized upper abdomen: The visualized portions of the liver, spleen, and adrenals have an unremarkable unenhanced appearance. Cholecystectomy. Degenerative changes of the spine. CT/CT lung screening IMPRESSION: Emphysema. Stable 6 mm medial peripheral or subpleural right upper lobe nodule adjacent to the mediastinum old exams going back to March 2023. Attention on follow-up recommended. No new or enlarging pulmonary nodule. LUNG-RADS ASSESSMENT: Lung-RADS 2: Benign MANAGEMENT: Continue annual screening with LDCT in 12 months Category S: N/A Electronically signed by: Amada Washington MD 08/23/2025 10:59 AM EDT
--- OUTSIDE RECORDS SUMMARY | 2025-08-23 11:57 | XMS_ITS | Patient Health Record ---
Author Organization [facility] Address [address] [place] [id number] Care Team Providers Care Retail And Restaurant Name Role Phone Mariaelena JASON, Bob Primary Care Provider Dwaine Churchill Unavailable [phone] Allergies No Known Allergies Reason For Referral No Information Medications Medication SIG (Take, Route, Fr equency, Duration) Notes Start Date End Date Status Triazolam 0.25 MG TAKE 1 TABLET BY VIKY TH EVERY DAY AT BEDTIME NEEDED FOR SLEEP Oral; Duration: 90 Active clonazePAM 0.5 MG TAKE 1 TABLET BY VIKY TH EVERY DAY Oral; Duration: 90 Active Multivitamin Adult - 1 tablet Orally Onc e a day; Duration: 30 day(s) Active Aspirin 81 81 MG 1 tablet Orally Once a day; Duration: 30 day(s) Active Social History Tobacco Use: [...] Problem Status W/U Status Risk Notes Problem Colon cancer screening (858875063) Colon cancer screening (Z12.11) Active confirmed Problem History of adenomatous polyp of colon (160969420) History of adenomatous polyp of colon (Z86.010) Active confirmed Problem Diverticular disease of colon (120253039) Diverticulosis of large intestine without perforation or abscess without bleeding (K57.30) Active confirmed Problem Preprocedural examination (981650932159954) Preprocedural examination (Z01.818) Active confirmed Plan Of Treatment Pending Test Test Name Order Date Pathology 03/04/2024 Future Test Test Name Order Date COLONOSCOPY 07/20/2012 COLONOSCOPY 12/01/2023 Insurance Providers Payer Name Payer Address Payer Phone Subscriber Number Group Number Insured Name Patient Relationship to Insured Coverage Start Date Coverage End Date [facility] [address] [place] [address] [id number] MIREILLE FRANCISCO Self - patient is the insured Medical (General) History Medical History History ICD Code Denies [place],DM,CVA,renal disease Told of emphysema on a scree wilma chest CT, but not on any medication nor inhalers Anxiety Screening colonoscopy in 201 2 revealed small tubular adenomas that were removed Surgical History Surgery Date(Month/Year) cholecystectomy 2022 broken leg surgery 2016
--- OUTSIDE RECORDS SUMMARY | 2025-08-23 11:57 | XMS_ITS | Clinical Summary ---
Author Organization [facility] [employer] Address [address] [facility] [address] Care Team Providers Care Adjuster And Inspector Name Role Phone Bob Ferrell MD Primary Care Provider Immunizations Immunization Administration Dates Next Due Fluzone Trivalent High [...] Adults 18 yrs or above (or HM Modifier)([facility]) 1973 Hepatitis C Virus Infection in Adolescents and Adults: Screening (or Modifier) ([facility]) 1973 SDTX Screening Reminder: Almita wolf for all adults ([facility]) 1973 Tobacco Smoking Cessation: i n Adults excluding Women: Behavioral and Pharmacotherapy Interventions ([facility]) 1973 DTaP/Tdap/Td Vaccines ([facility]) (1 - Tdap) 1974 Colorectal Cancer Screening 45 -75 Yrs (or HM Modifier) 2000 Colorectal Cancer: FLEXIBLE SIGMOIDOSCOPY Screening every 5 yrs 2000 Colorectal Cancer: Fecal Imm unochemical Test (FIT) Annually [facility] 2000 Colorectal Cancer: High-sens itivity gFOBT Screening Annually [facility] 2000 Colorectal Cancer: Stool Col oguard Screening every 3 yrs 2000 Colorectal Cancer:CT Colonog mitra Screening every 5 yrs 2000 Pneumococcal Vaccination Scr eening: Patients 50+ yrs of age ([facility]) (1 of 1 - PCV) 2005 Zoster/Shingles Vaccine Seri es Screening: Adults aged 18+ yrs (or HM Modifiers)([facility]) (1 of 2) 2005 Flu Vaccination: Ages 65+: Y early High Dose Recommended (or Modifier)([facility]) 05/26/2025 10/25/2020 COVID-19 Vaccine Screening: Initial Series and Booster Status ([facility]) ( - 2023- season) 2025 RSV Vaccines (1 - 1-dose 75+ series) 2030 [employer] Not on file Care Teams Adjuster And Inspector Relationship Specialty Start Date End Date Bob Ferrell MD [address] [place] [address] [place] [phone] PCP - General Internal Medicine 10/25/20
== END 2025-08-23 09:54 | disposition home or self-care (01) ==
LOC: HO.CT 09:53
PROVIDERS: PCP Internal Medicine; Visit Provider Physician Assistant Medical
DX: Z12.2 Encounter for screening for malignant neoplasm of respiratory organs (principal); F17.210 Nicotine dependence, cigarettes, uncomplicated
CPT/HCPCS: 71271

== ENCOUNTER → 2025-08-23 09:55 | Outpatient (BNV) | payer MEDICARE, SELFPAY | PROVIDERS: PCP Internal Medicine; Visit Provider Radiology Diagnostic Radiology | DX: Z12.2 Encounter for screening for malignant neoplasm of respiratory organs (principal); J43.9 Emphysema, unspecified; Z87.891 Personal history of nicotine dependence | CPT/HCPCS: 71271 ==